=== PATIENT | female | born 1990 | race Caucasian/White ===

== ENCOUNTER → 2024-02-26 09:59 | Outpatient (BNVA) | payer SELFPAY | DX: R76.11 Nonspecific reaction to tuberculin skin test without active tuberculosis (principal) ==

== ENCOUNTER 2024-08-07 11:54 | Outpatient (REF) | payer BC, SELFPAY ==
--- NOTE | ~2024-08-07 | XR_ITS ---
EXAMINATION: XR CHEST CLINICAL INFORMATION: Rule out pneumonia COMPARISON: None available. TECHNIQUE: 2 views of the chest were obtained. FINDINGS: The cardiac silhouette is normal. There is mild diffuse bronchial wall thickening. Right perihilar opacity.. There are no pleural effusions or pneumothoraces. The bones and soft tissues are unremarkable for the patient's age. XR/XR chest 2V IMPRESSION: Right perihilar opacity suspicious for pneumonia. Electronically signed by: Makayla Kinney MD 08/07/2024 06:13 PM [facility]
[2024-08-07 14:18] LABS: Influenza A PCR NEGATIVE (Negative); Influenza B PCR NEGATIVE (Negative); Resp Syncy Virus RNA Qual PCR NEGATIVE (Negative); SARS COV2 PCR INHOUSE NEGATIVE (Negative)
== END 2024-08-07 11:55 | disposition home or self-care (01) ==
LOC: HO.HMGCX 11:54
PROVIDERS: PCP Internal Medicine; Visit Provider Nurse Practitioner Family
DX: R09.89 Other specified symptoms and signs involving the circulatory and respiratory systems (principal); R05.9 Cough, unspecified; R50.9 Fever, unspecified; R68.89 Other general symptoms and signs; R06.2 Wheezing
CPT/HCPCS: 0241U; 71046

== ENCOUNTER 2024-08-07 11:54 | Outpatient (AMB) | payer BC, SELFPAY ==
--- NOTE | 2024-08-07 12:10 | AM.OFFWIN_ITS ---
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 She reports a temperature of 101 degrees, body aches, feeling tired, cough, runny nose with clear drainage. She has been taking Tylenol which does help to reduce the fever. She denies an asthma history. Denies sore throat, denies ear pain, ExaM Awake alert NAD, mildly ill-appearing Sclera and conjunctiva clear bilat Nares clear drainage, turbinates within normal limits, no sinus tenderness with palpation bilat TM intact mild congestion bilat MMM, pharynx WNL Tachycardic, regular rhythm LS coarse throughout, worse in the right mid/upper lobe, wheezing throughout, paroxysmal cough Plan Viral swab negative. Chest x-ray + for PNA, see results. Treat with Augmentin, Mucinex & Albuterol. Take as directed. Take w/ food to avoid GI upset. Edu on reasons to seek add'l care and f/u Out of work will need repeat CXR in 1 month for resolution along w/ recheck I have placed this order. My office will reach out to schedule her an office visit in 1 months. This note is constructed using voice recognition software. While every effort has been made to ensure accuracy in continuous mining machine lode miner, still errors may have been included Sometimes, these errors may affect the content or meaning of the given sentence . Total time spent caring for the patient today was 30 minutes. This includes time spent before the visit reviewing the chart, time spent during the visit, and time spent after the visit on documentation Physical Exam Vital Signs: Last Vital Signs Temp 99.9 F 08/07/24 12:11 Pulse 108 H 08/07/24 12:11 BP 112/70 08/07/24 12:11 Pulse Ox 98 08/07/24 12:11 Oxygen Delivery Method Room Air 08/07/24 12:11 BMI result Body Mass Index 29.9 Results Reviewed Results Reviewed: RUN: 08/07/24 3604 PAGE 1 [facility] [address] [place] [id number] Floor Helper: Jeremias Nunez M.D. Specimen Inquiry Name: Andreia Robb Age/Sex: 33/F : 1990 Unit#: [id number] Attend Dr: Shauna Manzano Re08/07/24 Status: REG REF [facility] Disch: SPEC : [id number] ALEJO: 08/07/24 STATUS: COMP REQ : [id number] RECD: 08/07/[address] [facility] DR: Shauna ManzanoPTammy COMP: 08/07/24 ENTERED: 08/07/24 [facility] DR: ORDERED: SARS/FLU/RSV Test Result Flag Reference Influenza A PCR NEGATIVE Negative Influenza B PCR NEGATIVE Negative RSV RNA QualPCR NEGATIVE Negative SARSCOV2 RT-PCR NEGATIVE Negative All test results must be correlated with clinical findings. Negative results do not preclude SARS-CoV2, influenza A virus, influenza B virus and/or RSV infection and should not be used as the sole basis for treatment or other patient management decisions. Negative results must be combined with clinical observations, patient history, and epidemiological information. This test has not been evaluated for monitoring treatment of infection. This test has been authorized by the FDA under an Emergency Use Authorization (EUA) for use by authorized laboratories. Testing performed on the [employer] GeneXpert utilizing real-time RT-PCR. All SARS CoV2 and positive influenza A/B results are reported to [facility]. END OF REPORT Assessment & Plan Assessment & Plan (1) Wheezing without diagnosis of asthma: Code(s): R06.2 - Wheezing Plan: . (2) Flu-like symptoms: Code(s): R68.89 - Other general symptoms and signs Plan: . (3) Fever: Comment: .. Code(s): R50.9 - Fever, unspecified Qualifiers: Encounter type: initial encounter (4) Cough: Code(s): R05.9 - Cough, unspecified Qualifiers: Cough type: acute Qualified Code(s): R05.1 - Acute cough Plan: . (5) Pneumonia: Code(s): J18.9 - Pneumonia, unspecified organism Qualifiers: Laterality: right Lung location: middle lobe of lung Pneumonia type: due to unspecified organism Qualified Code(s): J18.9 - Pneumonia, unspecified organism Plan: . Plan . Orders: Orders XR chest 2V Today R05.9 - Cough, unspecified, R06.2 - Wheezing, R09.89 - Other specified symptoms and signs involving the circulatory and respiratory systems, R50.9 - Fever, unspecified, R68.89 - Other general symptoms and signs SARS-CoV2/FLU/RSV Today R05.9 - Cough, unspecified, R06.2 - Wheezing, R09.89 - Other specified symptoms and signs involving the circulatory and respiratory systems, R50.9 - Fever, unspecified, R68.89 - Other general symptoms and signs XR chest 2V 1 Month J18.9 - Pneumonia, unspecified organism Medications: New albuterol sulfate 90 mcg/actuation 2 puffs inhalation Q4-6H 30 days PRN 8.5 grams 0RF shortness of breath or wheezing amoxicillin-pot clavulanate 875-125 mg 1 tab PO Q12H 10 days 20 tabs 0RF guaifenesin ER (Mucinex) 1,200 mg (2 x 600 mg) PO Q12H 10 days PRN 40 tabs 0RF congestion Coding Level of Care Code Est Pt Level 4 (07432) Diagnoses Wheezing without diagnosis of asthma R06.2 Flu-like symptoms R68.89 Fever R50.9 Encounter type: initial encounter Acute cough R05.1 Cough type: acute Pneumonia of right middle lobe due to infectious organism J18.9 Laterality: right Lung location: middle lobe of lung Pneumonia type: due to unspecified organism
[2024-08-07 12:11] VITALS: BP 112/70; PULSE 108; TEMP 37.7; O2SAT 98; BMI 29.9
== END 2024-08-07 12:49 | disposition home or self-care (01) ==
PROVIDERS: PCP Internal Medicine; Visit Provider Nurse Practitioner Family
DX: R06.2 Wheezing (principal); R68.89 Other general symptoms and signs; R50.9 Fever, unspecified; R05.1 Acute cough; J18.9 Pneumonia, unspecified organism

== ENCOUNTER 2024-09-06 13:14 | Outpatient (REF) | payer OTHER, SELFPAY ==
--- NOTE | ~2024-09-06 | XR_ITS ---
EXAMINATION: XR CHEST CLINICAL INFORMATION: J18.9 - Pneumonia, unspecified organism COMPARISON: None available. TECHNIQUE: 2 views of the chest were obtained. FINDINGS: The cardiac, hilar, and mediastinal contours are normal. There has been near complete clearing of pneumonia in the superior segment right lower lobe. Minimal groundglass opacity remains. No new abnormal opacities. No effusions. No pneumothorax. There is no focal osseous or soft tissue abnormality. XR/XR chest 2V IMPRESSION: 1. Significantly improved pneumonia in the superior segment right lower lobe. No new findings. Electronically signed by: Scott Jameson MD 09/08/2024 09:22 AM [facility]
== END 2024-09-06 13:15 | disposition home or self-care (01) ==
LOC: HO.HMGCX 13:14
PROVIDERS: PCP Internal Medicine; Visit Provider Nurse Practitioner Family
DX: J18.9 Pneumonia, unspecified organism (principal)
CPT/HCPCS: 71046

== ENCOUNTER → 2024-09-06 13:18 | Outpatient (BNV) | payer OTHER, SELFPAY | PROVIDERS: PCP Internal Medicine; Visit Provider Radiology Diagnostic Radiology | DX: J18.9 Pneumonia, unspecified organism (principal) | CPT/HCPCS: 71046 ==

== ENCOUNTER 2024-09-08 10:09 | Outpatient (AMB) | payer OTHER, SELFPAY ==
--- NOTE | 2024-09-08 10:17 | A.OFFPC_ITS ---
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 Required: No Allergies No Known Allergies Allergy (Verified 09/08/24 10:31) Medication List - Last Reconciled 09/08/24 by [facility]IND[facility]LOC[facility] albuterol sulfate 90 mcg/actuation 2 puffs inhalation Q4-6H PRN 30 days amoxicillin-pot clavulanate 875-125 mg 1 tab PO Q12H 10 days guaifenesin ER (Mucinex) 1,200 mg (2 x 600 mg) PO Q12H PRN 10 days HPI HPI Comments History of Present Illness Details History of Present Illness The patient is a 33-year-old female presenting with a follow-up for pneumonia; initially treated with Augmentin, and the patient completed the course of antibiotics. Her symptoms included fever and productive cough, which have resolved, but she still experiences postnasal mucus. The patient reports decreased physical activity tolerance. A repeat chest x-ray showed significant improvement but indicated near-complete clearing of the pneumonia, necessitating further monitoring. The patient has a history of recurrent episodes of pneumonia since high school, occurring every one to two years, often accompanied by high fevers and tachycardia. Additionally, the patient experiences chronic constipation with bloating and abdominal discomfort, which she intends to discuss with gastroenterology. She has a family history of colon polyps, raising concerns for potential gastrointestinal disorders. Physical Exam General: Awake, alert. No apparent distress Eyes: Sclera and conjunctiva clear bilaterally Cardiovascular: Regular rate and rhythm Respiratory: Clear to auscultation bilaterally, no wheezing or crackling noted Results - Imaging: Recent chest x-ray indicates significant improvement in the right lower lobe pneumonia with near-complete clearing. Plan - Bacterial Pneumonia: Initiate a five-d ay course of doxycycline to ensure complete resolution. Maintain the use of an albuterol inhaler for the next 10-14 days to promote lung expansion. - Recurrent Pulmonary Infections: Referr al to Dr. Germain, a medical insurance coder with expertise in immunology, for a comprehensive evaluation and immunology workup. - Chronic Constipation: Referral to [facility] for assessment and management, given the persistent symptoms and family history. Consideration for a colonoscopy due to family history and symptoms. Patient was informed and verbally consented to the use of an ambient scribe for clinic note documentation during this visit. Discussion Notes During this visit, I discussed with the patient the improvement in her pneumonia based on the latest chest x-ray. I emphasized the importance of completing another course of doxycycline and using the inhaler to assist in lung recovery. We reviewed her recurrent pulmonary infections, and I recommended a referral to Dr. Germain for an immunology workup. I discussed her chronic constipation and arranged for a gastroenterology referral, highlighting the possibility of needing a colonoscopy due to her family history and current symptoms. We addressed the timeline for these follow-ups and the current scheduling delays in the gastroenterology department. Patient Instructions - Complete the prescribed doxycycline co urse for five days. - Use the albuterol inhaler for 10-14 da ys as directed. - Follow up with Dr. Germain for a pul monary and immunology evaluation as arranged. - Attend the gastroenterology appointmen t when scheduled and mention any need for a colonoscopy based on family history. - Contact the office if there is any wor sening of respiratory symptoms or other health concerns. RTO IN A FEW MONTHS TO EST CARE W/ ME, SOONER PRN Total time spent caring for the patient today was 30 minutes. This includes time spent before the visit reviewing the chart, time spent during the visit, and time spent after the visit on documentation Questionnaire PHQ-9 Over the last 2 weeks, how often have you been bothered by any of the following problems? 1. Little interest or pleasure in doing things: several days 2. Feeling down, depressed, or hopeless: several days 3. Trouble falling or staying asleep, or sleeping too much: several days 4. Feeling tired or having little energy: several days 5. Poor appetite or overeating: several days 6. Feeling bad about yourself - or that you are a failure or have let yourself or your family down: not at all 7. Trouble concentrating on things, such as reading the newspaper or watching television: not at all 8. Moving or speaking so slowly that other people could have noticed. Or the opposite - being so fidgety or restless that you have been moving around a lot more than usual: not at all 9. Thoughts that you would be better off or of hurting yourself in some way: not at all Total score: 5 41007 - PHQ-9 Billing: Yes Source: Developed by Drs. Vinh Painter, Erin Scanlon, Ty Rosenthal and colleagues, with an educational sofya from [employer]. Thrive Questionnaire Date Thrive assessed: 09/08/24 I am a: Patient What is your living situation today?: I have a steady place to live Within the past 12 months, did the food you bought not last and you didn't have the money to get more?: Never true Within the past 12 months, did you worry whether your food would run out before you got money to buy more?: Never true Do you have trouble paying for medicines?: No Do you have trouble getting transportation to medical appointments?: No Do you have trouble paying your heating and electricity bill?: No Do you have trouble taking care of your child, family member or friend?: No Do you have trouble with day-to-day activities such as bathing, preparing meals, shopping, managing finances, etc.?: No Are you currently unemployed and looking for a job?: No Are you interested in more education?: No Please select the resources that you would like help with: None Currently or been in a relationship where the following occur: No concerns reported THRIVE Score: 0 AUDIT C Alcohol Use Questionnaire (AUDIT-C) 1. How often do you have a drink containing alcohol?: 2-4 times a month 2. How many drinks containing alcohol do you have on a typical day when you are drinking?: 1 or 2 3. How often do you have six or more drinks on one occasion?: Never Total Score: 2 KIMBERLY-7 AMB Questionnaire KIMBERLY-7 Date KIMBERLY - 7 assessed: 09/08/24 Feeling nervous, anxious, or on edge: 2 = More than half the days Not being able to stop or control worryin = Several days Worrying too much about different things: 0 = Not at all Trouble relaxin = Several days Being so restless that it is hard to sit still: 0 = Not at all Becoming easily annoyed or irritable: 2 = More than half the days Feeling afraid as if something awful might happen: 0 = Not at all Total KIMBERLY-7 score (0-4 normal; 5-9 mild; 10-14 moderate; 15-21 severe): 6 Source: Developed by Drs. Vinh Painter, Erin Scanlon, Ty Rosenthal and colleagues, with an educational sofya from [employer]. KIMBERLY-7 Assessment Billing KIMBERLY-7 Assessment Tool: KIMBERLY-7 Assessment 30244 Physical exam (Primary Care) Vital Signs: Last Vital Signs Pulse 69 09/08/24 10:20 Resp 12 09/08/24 10:20 BP 118/68 09/08/24 10:20 Pulse Ox 98 09/08/24 10:20 Oxygen Delivery Method Room Air 09/08/24 10:20 BMI result Body Mass Index 29.9 PHQ-9: PHQ-9 Score PHQ-9: Total score 5 09/08/24 10:35 Thrive Assessment: Date of Thrive Assessment Date Thrive assessed 09/08/24 09/08/24 10:18 Currently or been in a relationship where the following occur: No concerns reported Results Reviewed Results Reviewed: [facility] [place] [address] XRay Report Signed Patient: Andreia Robb MR#: [id number] : 1990 Acct:[id number] Age/Sex: 33 / F ADM Date: 09/06/24 Loc: .[facility] Attending Dr: Shauna DUARTE Ordering Physician: Shauna Manzano Date of Service: 09/06/24 Procedure(s): XR chest 2V Accession Number(s): [id number] cc: Shauna Manzano; Heide Aguiar MD~ EXAMINATION: XR CHEST CLINICAL INFORMATION: J18.9 - Pneumonia, unspecified organism COMPARISON: None available. TECHNIQUE: 2 views of the chest were obtained. FINDINGS: The cardiac, hilar, and mediastinal contours are normal. There has been near complete clearing of pneumonia in the superior segment right lower lobe. Minimal groundglass opacity remains. No new abnormal opacities. No effusions. No pneumothorax. There is no focal osseous or soft tissue abnormality. XR/XR chest 2V IMPRESSION: 1. Significantly improved pneumonia in the superior segment right lower lobe. No new findings. Electronically signed by: Scott Jameson MD 09/08/2024 09:22 AM EST Dictated By: Scott Jameson MD Signed By: <Electronically signed by Scott Jameson MD in OV> 09/08/24 0922 DD/ 1318 TD/TT: 09/06/24 1321 Die Operator: Coding Level of Care Code Est Pt Level 4 (48720) Complex EM visit Add On G2211 Diagnoses Pneumonia of right middle lobe due to infectious organism J18.9 Laterality: right Lung location: middle lobe of lung Pneumonia type: due to unspecified organism Chronic diarrhea K52.9 Additional Codes KIMBERLY-7 Assessment Billing - KIMBERLY-7 Assessment Tool: KIMBERLY-7 Assessment 50280 ([id number]) PHQ-9 - 03758 - PHQ-9 Billing: Yes ([id number]) Assessment & Plan Assessment & Plan (1) Pneumonia: Code(s): J18.9 - Pneumonia, unspecified organism Category: Medical Qualifiers: Laterality: right Lung location: middle lobe of lung Pneumonia type: due to unspecified organism Qualified Code(s): J18.9 - Pneumonia, unspecified organism (2) Chronic diarrhea: Code(s): K52.9 - Noninfective gastroenteritis and colitis, unspecified Category: Medical Plan . Orders: Referrals Gastroenterology Referral K52.9 - Noninfective gastroenteritis and colitis, unspecified Pulmonology Referral J18.9 - Pneumonia, unspecified organism Medications: New doxycycline hyclate 100 mg PO BID 10 caps 0RF 5 days
[2024-09-08 10:20] VITALS: BP 118/68; PULSE 69; RESP 12; O2SAT 98; BMI 29.9
== END 2024-09-08 10:44 | disposition home or self-care (01) ==
PROVIDERS: PCP Internal Medicine; Visit Provider Nurse Practitioner Family
DX: J18.9 Pneumonia, unspecified organism (principal); K52.9 Noninfective gastroenteritis and colitis, unspecified

== ENCOUNTER → 2024-09-08 10:09 | Outpatient (BNVA) | payer OTHER, SELFPAY | PROVIDERS: PCP Internal Medicine; Visit Provider Nurse Practitioner Family | DX: J18.9 Pneumonia, unspecified organism (principal); K52.9 Noninfective gastroenteritis and colitis, unspecified | CPT/HCPCS: 96127 ==

== ENCOUNTER 2024-10-19 13:29 | Outpatient (REF) | payer OTHER, SELFPAY ==
[2024-10-19 16:16] LABS: Erythrocyte Sedimentation Rate 11 MM/HR (0-20)
[2024-10-20 11:43] LABS: IgA 366 mg/dL (47-310); IgG 1540 mg/dL (600-1640); IgM 81 mg/dL (50-300)
[2024-10-20 14:17] LABS: Immunoglobulin E 25 kU/L (<OR=114)
[2024-10-21 14:08] LABS: Anti Nuclear Antibody Screen NEGATIVE (NEGATIVE)
[2024-10-22 18:28] LABS: VITAMIN D (1,25 OH) D3 48 pg/mL; Vit D (1,25-Dihydroxy) Total 48 pg/mL (18-72); Vitamin D (1,25 OH) D2 <8 pg/mL
[2024-10-23 16:14] LABS: Vitamin D 25-OH, D2 <4 ng/mL; Vitamin D 25-OH, D3 26 ng/mL; Vitamin D 25-OH, Total 26 ng/mL (30-100)
== END 2024-10-19 13:30 | disposition home or self-care (01) ==
LOC: HO.LAB 13:29
PROVIDERS: PCP Internal Medicine; Visit Provider Hospitalist
DX: J18.9 Pneumonia, unspecified organism (principal); R91.8 Other nonspecific abnormal finding of lung field
CPT/HCPCS: 36415; 82306; 82652; 82784; 82785; 85652; 86038

== ENCOUNTER 2024-10-19 13:29 | Outpatient (AMB) | payer OTHER, SELFPAY ==
--- NOTE | 2024-10-19 13:31 | A.OFFVIS_ITS ---
Vital Signs 10/19/24 13:32 Height 5 ft Weight 152 lb 1.903 oz BMI 29.7 BP 118/76 Blood Pressure Location Rt brachial Position Sitting Pulse 71 Pulse Source Pulse Oximeter Pulse Oximetry (%) 100 Oxygen Delivery Method Room Air Intake Visit Reasons: Recurrent Pneumonia Allergies No Known Allergies Allergy (Verified 10/19/24 13:34) HPI Comments Details: The patient is here for pulmonary evaluation. The patient is a 33 year woman with a known history of pneumonia. Apparently she was in usual state health until when she was not back in 2019 approximately where she developed only. She was treated in subsequently after that she has had several more episodes. She was followed at [facility] and she did have a CT scan of the chest back in 2020. He reports demonstrating multiple pulmonary nodules. No evidence of any parenchymal disease or airspace disease. She ended up having a repeat CT scan 2 years later demonstrating no evidence of any worsening of the nodules. Therefore no additional follow-up with warranted. More recently 08/18/2024 she started developing fevers and malaise. She developed a cough. Ultimately had an x-ray demonstrating right-sided hilar airspace disease suggestive of pneumonia. The patient was treated with antibiotics. And after a week she felt better. She had a repeat x-ray sometime in August demonstrating interval resolution of the airspace disease. Right now well. She is back to her baseline. 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 She denies any joint pains or rashes. At this point will go ahead and request blood work to assess her immune system in view of her frequent pneumonias. She is going to follow up in 6 months. She develops any worsening symptoms prior to that she will call for an earlier assessment. COUNT INCLUDES THE [facility] Medical History (Updated 10/19/24 @ 19:36 by Polo Germain MD) Pulmonary nodules Social History (Updated 10/19/24 @ 13:34 by Michelle Orr CMA) Patient Tobacco Use Status: Never used Tobacco Review of Systems Const Denies fever(s) and Denies malaise Eyes Reports no additional complaints ENT Reports no additional complaints Card Denies chest pain Resp Reports no additional complaints and Denies wheezing GI Reports no additional complaints Musc Reports no additional complaints Skin/Breast Denies rash Endo Reports no additional complaints Kevin/Lymph Denies easy bleeding and Denies lymphadenopathy Aller/Immun Denies wheezing Physical Exam Vital Signs: Last Vital Signs Pulse 71 10/19/24 13:32 BP 118/76 10/19/24 13:32 Pulse Ox 100 10/19/24 13:32 Oxygen Delivery Method Room Air 10/19/24 13:32 BMI result Body Mass Index 29.7 Const General: comfortable HEENT Head: Yes normocephalic Neck Neck: Yes supple Chest Chest palpation & inspection: normal inspection of the chest Resp Effort & Inspection: normal respiratory effort Auscultation: clear to auscultation bilaterally Cardio Heart sounds: S1 normal heart sound present and S2 normal heart sound present GI Palpation (GI): Soft to palpation Skin General skin exam: no rashes or lesions noted Extrem General: Yes no clubbing, cyanosis or edema Assessment & Plan Assessment & Plan (1) Pneumonia: Code(s): J18.9 - Pneumonia, unspecified organism Category: Medical Qualifiers: Laterality: right Lung location: middle lobe of lung Pneumonia type: due to unspecified organism Qualified Code(s): J18.9 - Pneumonia, unspecified organism (2) Pulmonary nodules: Comment: stable nodules based on CT chest 2020 and 2022 Code(s): R91.8 - Other nonspecific abnormal finding of lung field Category: Medical Plan Bloodwork DILLAN as needed Will call if any respiratory complaints F/U 6 months Orders: Orders Immunoglobulin E Today J18.9 - Pneumonia, unspecified organism GUILLERMINA Reflex Titer and Pattern Today J18.9 - Pneumonia, unspecified organism Erythrocyte Sedimentation Rate Today J18.9 - Pneumonia, unspecified organism Vitamin D 25-OH (D2 and D3) Today J18.9 - Pneumonia, unspecified organism Cell Count w Diff Pleural Fld Today J18.9 - Pneumonia, unspecified organism Immunoglobulins,IgG IgA IgM Today J18.9 - Pneumonia, unspecified organism Vitamin D 1,25 dihydroxy Today J18.9 - Pneumonia, unspecified organism Coding Level of Care Code New Pt Level 4 (49392) Diagnoses Pneumonia of right middle lobe due to infectious organism J18.9 Laterality: right Lung location: middle lobe of lung Pneumonia type: due to unspecified organism Pulmonary nodules R91.8 Time Spent (min) 35
[2024-10-19 13:32] VITALS: BP 118/76; PULSE 71; O2SAT 100; BMI 29.7
== END 2024-10-19 13:57 | disposition home or self-care (01) ==
PROVIDERS: PCP Internal Medicine; Visit Provider Hospitalist
DX: J18.9 Pneumonia, unspecified organism (principal); R91.8 Other nonspecific abnormal finding of lung field
CPT/HCPCS: 99204

== ENCOUNTER 2024-10-20 10:37 | Outpatient (AMB) | payer OTHER, SELFPAY ==
--- NOTE | 2024-10-20 10:39 | A.OFFPC_ITS ---
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: No Allergies No Known Allergies Allergy (Verified 10/20/24 10:53) Medication List - Last Reconciled 10/20/24 by DONNA Hanley No Known Home Meds Tobacco use date assessed: 10/20/24 Dental Screening Dental Screen Date: 10/20/24 Did you have a dental visit in the last 12 months?: Yes Did you have a dental problem in the last 6 months where you did not have access to dental care?: No Was dental information given to patient?: Patient has dentist HPI HPI Comments History of Present Illness Details 33 y/o F with hx of PNA, family hx of co sole polyps (Dad), chronic constipation, multiple pulmonary nodules, HPV + Surgery: None 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 Optho - no changes, no glasses, has never had eye exam Skin - new lesion r chest in the last year; no family hx of skin cancerl rash L shoulder both occurred after sunburn last summer History of Present Illness The patient is a 33-year-old female presenting to [facility] and for a wellness examination. 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 Her family history includes colon polyps on her father?s side. She reports chronic constipation and has been referred to gastroenterology, though she has not yet received an appointment call. The patient recently experienced the of her sister, which she identifies as a trigger for situational anxiety and depression; her mental health screening showed a positive score for both conditions. She reports no current medications, known allergies, or significant additional family medical history aside from those mentioned. The patient had a Pap smear in early September, which was positive for HPV, but she reports no complications from the diagnosis. Health Maintenance - Vaccination: Tdap vaccine received on October 17, 2019. - Opt-out of the flu vaccine this year d ue to frequent illnesses. - Eye examination referred to [facility]. - Skin evaluation referral placed to [facility] for a newly noted skin lesion. Review of Systems - Constitutional: Denies recent weight c hanges or unexplained fatigue. - Dermatologic: Reports a new skin lesio n on the chest. - Respiratory: Reports no smoking habits . - Gastrointestinal: Reports chronic cons tipation. - Psychiatric: Reports situational anxie ty and depression due to bereavement. Exam: General: Well developed, well nourished, in no acute distress. Appears stated age. Head: Normocephalic, atraumatic. Eyes: Pupils are equal, round and reactive to light and accommodation. Conjunctivae are clear. Vision grossly normal. Ears: TMs clear AU, EACS WNL Nose: Patent, without discharge. Mouth: There are no ulcers or lesions noted. No inflammation, no post nasal drip, no plaques nor exudates. Tonsillar hypertrophy bilat (baseline) Neck: Supple, no adenopathy or thyromegaly. Lungs: Clear to auscultation bilaterally. No rales, rhonchi or wheeze noted. Good air flow in all [place]. Heart: Regular rate and rhythm. No murmurs, click, rubs or gallops are noted. Abdomen: Bowel sounds present in all quadrants. The abdomen is soft, nontender, with no masses or organomegaly noted. No hernias are noted. Musculoskeletal: Joints are nontender, without swelling, redness, or effusions. Range of motion is observed to be normal. Pulses: Peripheral pulses are equal and palpable bilaterally. Extremities: No clubbing, cyanosis nor edema is noted. Neurologic: Gait and station normal. Cranial Nerves 2-12 intact. Motor strength grossly symmetrical and intact. No sensory loss. Balance normal. Skin: R anterior chest is a faint pink plaque, flat; L shoulder scattered flat hypopigmented areas. Turgor is good. Skin color is good. Hair and nails are without abnormalities. Psych: Normal eye contact, affect and mood appropriate, and normal interactions. Patient is alert and appropriate to context. Plan - Baseline lab screening for lipid profi le due to known history of elevated triglycerides and possible dyslipidemia. - Gastroenterology follow-up to address chronic constipation issues; the referral was confirmed still pending. - Mental health support offered due to s ituational anxiety and depression after the sister's passing. - Dermatology referral for skin assessme nt of suspected minor skin lesion on the chest and shoulder. - Encourage the continuation of routine health maintenance and updates on immunization records. Patient was informed and verbally consented to the use of an ambient scribe for clinic note documentation during this visit. Discussion Notes During the visit, I discussed the significance of maintaining regular health screenings, especially given the family history of colon polyps and the past occurrence of pulmonary nodules. I emphasized the importance of getting an eye exam and managing chronic health issues such as constipation. I provided reassurance regarding the situational nature of her anxiety following her s ister's and encouraged her to reach out if her symptoms persist. I outlined the plan to monitor her skin lesion through dermatological evaluation and recommended routine preventative care. Patient Instructions - Schedule and complete baseline laborat ory tests for a cholesterol profile. - Follow up with gastroenterology; notif y the clinic if no appointment is forthcoming. - Monitor skin changes and attend the re ferred dermatology appointment. - Consider routine skin and eye healthca re visits. - Perform self-breast exams regularly, e specially after menses. - Stay proactive with mental health, and contact me if anxiety or depression symptoms worsen. - Maintain good health practices such as varied nutrition and regular physical activity. RTO 1 YEAR CPE, SOONER PRN PFSH Medical History (Updated 10/20/24 @ 11:[address] [facility]) Shingles Pneumonia Pulmonary nodules Surgical History (Updated 10/20/24 @ 10:48 by Juan Beth MA) No pertinent past surgical history Family History (Updated 10/20/24 @ 10:48 by Juan Beth MA) Mother Mental health disorder Sister Mental health disorder Thyroid disorder Paternal Aunt No problems noted. Paternal Grandmother Hypertension Cardiovascular disease Brother Asthma Father Cardiovascular disease Paternal Grandfather Cardiovascular disease Social History (Updated 10/20/24 @ 10:45 by Juan Beth MA) Household Members: None Both parents involved: No Caregiver staying overnight: No Housing: House Are you a primary healthcare management consultant to a significant other at home: No Do you presently have visiting nurse or other home services: No 75 years or older and lives alone: No Alcohol intake: current Alcohol intake frequency: a few times a month Patient Tobacco Use Status: Never used Tobacco e-Cigarette/Vaping Use: Never Used Second Hand Smoke Exposure: No Current occupational status: employed 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 1. Little interest or pleasure in doing things: more than half the days 2. Feeling down, depressed, or hopeless: more than half the days 3. Trouble falling or staying asleep, or sleeping too much: several days 4. Feeling tired or having little energy: more than half the days 5. Poor appetite or overeating: several days 6. Feeling bad about yourself - or that you are a failure or have let yourself or your family down: not at all 7. Trouble concentrating on things, such as reading the newspaper or watching television: not at all 8. Moving or speaking so slowly that other people could have noticed. Or the opposite - being so fidgety or restless that you have been moving around a lot more than usual: not at all 9. Thoughts that you would be better off or of hurting yourself in some way: not at all Total score: 8 Depression Screening Interpretation: Positive (RELATED TO SISTER SUICIDE ) Depression Screening Follow-up: Declines treatment Depression Screening Done: Yes 36323 - PHQ-9 Billing: Yes Source: Developed by Drs. Vinh Painter, Erin Scanlon, Ty Rosenthal and colleagues, with an educational sofya from [employer]. Thrive Questionnaire Date Thrive assessed: 10/20/24 I am a: Patient What is your living situation today?: I have a steady place to live Within the past 12 months, did the food you bought not last and you didn't have the money to get more?: Never true Within the past 12 months, did you worry whether your food would run out before you got money to buy more?: Never true Do you have trouble paying for medicines?: No Do you have trouble getting transportation to medical appointments?: No Do you have trouble paying your heating and electricity bill?: No Do you have trouble taking care of your child, family member or friend?: No Do you have trouble with day-to-day activities such as bathing, preparing meals, shopping, managing finances, etc.?: No Are you currently unemployed and looking for a job?: No Are you interested in more education?: No Please select the resources that you would like help with: None Currently or been in a relationship where the following occur: No concerns reported THRIVE Score: 0 AUDIT C Alcohol Use Questionnaire (AUDIT-C) 1. How often do you have a drink containing alcohol?: 2-4 times a month 2. How many drinks containing alcohol do you have on a typical day when you are drinking?: 1 or 2 3. How often do you have six or more drinks on one occasion?: Never Total Score: 2 Score Reviewed/Action Taken: Yes KIMBERLY-7 AMB Questionnaire KIMBERLY-7 Date KIMBERLY - 7 assessed: 10/20/24 Feeling nervous, anxious, or on edge: 2 = More than half the days Not being able to stop or control worryin = More than half the days Worrying too much about different things: 2 = More than half the days Trouble relaxin = More than half the days Being so restless that it is hard to sit still: 0 = Not at all Becoming easily annoyed or irritable: 3 = Nearly every day Feeling afraid as if something awful might happen: 0 = Not at all Total KIMBERLY-7 score (0-4 normal; 5-9 mild; 10-14 moderate; 15-21 severe): 11 Source: Developed by Drs. Vinh Painter, Erin Scanlon, Ty Rosenthal and colleagues, with an educational sofya from [employer]. KIMBERLY-7 Assessment Billing KIMBERLY-7 Assessment Tool: KIMBERLY-7 Assessment 96996 Physical exam (Primary Care) Vital Signs: Last Vital Signs Temp 97.7 F 10/20/24 10:48 Pulse 65 10/20/24 10:48 Resp 12 10/20/24 10:48 BP 117/70 10/20/24 10:48 Pulse Ox 99 10/20/24 10:48 Oxygen Delivery Method Room Air 10/20/24 10:48 BMI result Body Mass Index 29.8 Tobacco/Smoking Status: Tobacco use Status Tobacco use date assessed 10/20/24 10/20/24 10:51 Patient Tobacco Use Status Never used Tobacco 10/20/24 10:45 e-Cigarette/Vaping Use Never Used 10/20/24 10:51 PHQ-9: PHQ-9 Score PHQ-9: Total score 8 10/20/24 10:40 Depression Screening Interpretation: Positive (RELATED TO SISTER SUICIDE ) Depression Screening Follow-up: Declines treatment Thrive Assessment: Date of Thrive Assessment Date Thrive assessed 10/20/24 10/20/24 10:40 Currently or been in a relationship where the following occur: No concerns reported Coding Level of Care Code Est Pt Prev Care 18-39y(01490) Diagnoses Encounter for general adult medical examination without abnormal findings Z00.00 Family history of colonic polyps Z83.719 Grieving F43.21 Laboratory exam ordered as part of routine general medical examination Z00.00 Blurred vision, bilateral H53.8 Skin rash R21 Skin lesion L98.9 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 Family history of suicide Z81.8 Additional Codes KIMBERLY-7 Assessment Billing - KIMBERLY-7 Assessment Tool: KIMBERLY-7 Assessment 41388 ([id number]) PHQ-9 - 30437 - PHQ-9 Billing: Yes ([id number]) Assessment & Plan Assessment & Plan (1) Encounter for general adult medical examination without abnormal findings: Code(s): Z00.00 - Encounter for general adult medical examination without abnormal findings (2) Family history of colonic polyps: Code(s): Z83.719 - Family history of colon polyps, unspecified Category: Medical (3) Grieving: Code(s): F43.21 - Adjustment disorder with depressed mood Category: Medical (4) Laboratory exam ordered as part of routine general medical examination: Code(s): Z00.00 - Encounter for general adult medical examination without abnormal findings Category: Medical (5) Blurred vision, bilateral: Code(s): H53.8 - Other visual disturbances Category: Medical (6) Skin rash: Comment: L shoulder Code(s): R21 - Rash and other nonspecific skin eruption Category: Medical (7) Skin lesion: Comment: R anterior chest Code(s): L98.9 - Disorder of the skin and subcutaneous tissue, unspecified Category: Medical (8) HPV in female: Code(s): B97.7 - Papillomavirus as the cause of diseases classified elsewhere Category: Medical (9) Family history of suicide: Comment: sister Code(s): Z81.8 - Family history of other mental and behavioral disorders Category: Medical Plan . Orders: Orders Lipid Panel Today Z00.00 - Encounter for general adult medical examination without abnormal findings Comprehensive Met. Panel Today Z. - Encounter for general adult medical examination without abnormal findings Hemoglobin A1c Today Z00. - Encounter for general adult medical examination without abnormal findings Microalbumin, Random (w Creat) Today Z. - Encounter for general adult medical examination without abnormal findings TSH reflex Free T4 Today Z. - Encounter for general adult medical examination without abnormal findings Vitamin B12 and Folate Today Z.00 - Encounter for general adult medical examination without abnormal findings Referrals Dermatology Referral L98.9 - Disorder of the skin and subcutaneous tissue, unspecified, R21 - Rash and other nonspecific skin eruption Ophthalmology Referral H53.8 - Other visual disturbances Patient Instructions: Health screenings for women You should visit your health care provider from time to time, even if you are he althy. The purpose of these visits is to: Screen for medical issues Assess your risk for future medical problems Encourage a healthy lifestyle Update vaccinations and other preventive care services Help you get to know your provider in case of an illness Information Even if you feel fine, you should still see your provider for regular checkups. These visits can help you avoid problems in the future. For example, the only way to find out if you have high blood pressure is to have it checked regularly. High blood sugar and high cholesterol levels also may not have any symptoms in the early stages. A simple blood test can check for these conditions. There are specific times when you should see your provider or receive specific health screenings. The [place] Preventive Services Task Force publishes a list of recommended screenings. Below are screening guidelines for women ages 18 to 39. BLOOD PRESSURE SCREENING Your blood pressure should be checked at least once every 3 to 5 years if: Your blood pressure is in the normal range (top number less than 120 mm Hg and bottom number less than 80 mm Hg) You don't have risk factors for high blood pressure Ask your provider if you need your blood pressure checked more often if: The top number is 120 to 129 mm Hg or the bottom number is 70 to 79 mm Hg You have diabetes, heart disease, kidney problems, are overweight, or have certain other health conditions You have a first-degree relative with high blood pressure You are Black You had high blood pressure during a If the top number is 130 mm Hg or greater or the bottom number is 80 mm Hg or greater, this is considered stage 1 hypertension. Schedule an appointment with your provider to learn how you can reduce your blood pressure. Watch for blood pressure screenings in your area. Ask your provider if you can stop in to have your blood pressure checked. BREAST CANCER SCREENING Experts do not agree about the benefits of breast self-exams in finding breast cancer or saving lives. Talk to your provider about what is best for you. A screening mammogram is not recommended for most women under age 40. Your provider may discuss and recommend mammograms, MRI scans, or ultrasounds if you have an increased risk for breast cancer, such as: A mother or sister who had breast cancer at a young age (most often starting screening earlier than the age the close relative was diagnosed) You carry a high-risk genetic marker CERVICAL CANCER SCREENING Cervical cancer screening should start at age 21 years unless your provider advises otherwise. After the first test: Women ages 21 through 29 should have a Pap test every 3 years. Exoprts do not agree on whether HPV testing is recommended for this age group. Women ages 30 through 65 should be screened with either a Pap test every 3 years or the HPV test every 5 years or both tests every 5 years (called cotesting ). Women who have been treated for precancer (cervical dysplasia) should continue to have Pap tests for 20 years after treatment or until age 65, whichever is longer. If you have had your uterus and cervix removed (total hysterectomy), and you have not been diagnosed with cervical cancer or precancer (high grade cervical neoplasia), you do not need cervical cancer screening. CHOLESTEROL SCREENING Cholesterol screening should begin at: Age 45 for women with no known risk factors for coronary heart disease Age 20 for women with known risk factors for coronary heart disease Repeat cholesterol screening should take place: Every 5 years for women with normal cholesterol levels More often if changes occur in lifestyle (including weight gain and diet) More often if you have diabetes, heart disease, kidney problems, or certain other conditions DIABETES SCREENING You should be screened for diabetes starting at age 35 and then repeated every 3 years if you have no risk factors for diabetes. Screening may need to start earlier and be repeated more often if you have other risk factors for diabetes, such as: You have a first degree relative with diabetes. You are overweight or have obesity. You have high blood pressure, prediabetes, or a history of heart disease. Screening for diabetes should be done if you are planning to become and you are overweight and have other risk factors such as high blood pressure. DENTAL EXAM Go to the dentist once or twice every year for an exam and cleaning. Your dentist will evaluate if you need more frequent visits. EYE EXAM Have an eye exam every 5 to 10 years before age 40. If you have vision problems, have an eye exam every 2 years or more often if recommended by your provider. You should have an eye exam that includes an examination of your retina (back of your eye) at least every year if you have diabetes. IMMUNIZATIONS Commonly needed vaccines include: Flu shot: get one every year. COVID-19 vaccine: ask your provider what is best for you. Tetanus-diphtheria and acellular pertussis (Tdap) vaccine: have one at or after age 19 as one of your tetanus-diphtheria vaccines if you did not receive it as an adolescent. Tetanus-diphtheria: have a booster (or Tdap) every 10 years. Varicella vaccine: receive 2 doses if you never had chickenpox or the varicella vaccine. Hepatitis B vaccine: receive 2, 3, or 4 doses, depending on your exact circumstances. Measles, mumps, and rubella (MMR) vaccine: receive 1 to 2 doses if you are not already immune to MMR. Your provider can tell you if you are immune. Ask your provider about the human papillomavirus (HPV) vaccine if: You have not received the HPV vaccine in the past You have not completed the full vaccine series (you should catch up on this shot) Ask your provider if you should receive other immunizations if you have certain health problems that increase your risk for some diseases such as pneumonia. INFECTIOUS DISEASE SCREENING Women who are sexually active should be screened for chlamydia and gonorrhea up until age 25. Women 25 years and older should be screened for chlamydia and gonorrhea if at high risk. Screening for hepatitis C: All adults ages 18 to 79 should get a one-time test for hepatitis C. people should be screened at every . Screening for human immunodeficiency virus (HIV): All people ages 15 to 65 should get a one-time test for HIV. Depending on your lifestyle and medical history, you may also need to be screened for infections such as syphilis and HIV, as well as other infections. PHYSICAL EXAM All adults should visit their provider from time to time, even if they are healthy. The purpose of these visits is to: Screen for disease Assess your risk of future medical problems Encourage a healthy lifestyle Update your vaccinations and other preventive care services Maintain a relationship with a provider in case of an illness Your height, weight, and BMI should be checked at every exam. During your exam, your provider may ask you about: Depression and anxiety Diet and exercise Alcohol and tobacco use Safety issues, such as using seat belts, smoke detectors, and intimate partner violence Your medicines and risk for interactions SKIN SELF-EXAM Your provider may check your skin for signs of skin cancer, especially if you're at high risk, such as if you: Have had skin cancer before Have close relatives with skin cancer Have a weakened immune system OTHER SCREENING Talk with your provider about colon cancer screening if you have a strong family history of colon cancer or polyps, or if you have had inflammatory bowel disease or polyps yourself. Routine bone density screening of women under 40 is not recommended.
[2024-10-20 10:48] VITALS: BP 117/70; PULSE 65; RESP 12; TEMP 36.5; O2SAT 99; BMI 29.8
--- OUTSIDE RECORDS SUMMARY | 2024-10-20 11:49 | XMS_ITS | Clinical Summary ---
Author Organization [facility] Address [address] [place] [address] Care Team Providers Care Apprentice Painter Neckties Name Role Phone Unavailable Primary Care Provider Unavailabl e Surgical History Surgery Date Site/Laterality Comments OTHER SURGICAL HISTORY PROCEDURE: DENIES PREVIOUS SURGERY Medical History Medical History Date Comments Shortness of breath DX:Shortness of breath Tachycardia DX:Tachycardia Other chest pain DX:Other chest pain H. pylori infection DX:H. pylori infection Family History Medical History Relation Name Comments Hyperlipidemia Paternal Grandmother Hypertension Paternal Grandmother Relation Name Status Comments Brother Alive x3 half Father Alive Maternal Grandfather Alive Maternal Grandmother Alive Mother Alive Paternal Grandmother Alive Sister Alive x3 half Social History Tobacco Use Types Packs/Day Years Used Date Smoking Tobacco: Never Smokeless Tobacco: Never Alcohol Use Standard Drinks/Week Comments No 0 (1 standard drink = 0.6 oz pur e alcohol) Sex and Gender Information Value Date Recorded Sex Assigned at Not on file Gender Identity Not on file Sexual Orientation Not on file Obstetrics History Plan of Treatment Health Maintenance Due Date Last Done Comments Hepatitis B Vaccines (1 of 3 - 19+ 3-dose series) 2011 Cervical Cancer Screening: P ap Smear 2013 Cholesterol Screening (Lipid Panel) 10/27/2019 Depression Screening 10/27/2019 HIV Screening 10/27/2019 Hepatitis C Screening 10/27/2019 Social Influencers of Health Screening 10/27/2019 COVID-19 Vaccine (1 - 2023-2 5 season) 2024 Influenza Vaccine (#1) 2024 DTaP,Tdap,and Td Vaccines (2 - Td or Tdap) 10/07/2029 10/07/2019 HIB Vaccines Aged Out No longer eligi ble based on patient's age to complete this topic HPV Vaccines Aged Out No longer eligi ble based on patient's age to complete this topic Hepatitis A Vaccines Aged Out No long er eligible based on patient's age to complete this topic IPV Vaccines Aged Out No longer eligi ble based on patient's age to complete this topic MMR Vaccines Aged Out No longer eligi ble based on patient's age to complete this topic Meningococcal ACWY Vaccine Aged Out N o longer eligible based on patient's age to complete this topic Pneumococcal Vaccine: Pediat rics (0 to 5 Years) and At-Risk Patients (6 to 64 Years) Aged Out No longer eligi ble based on patient's age to complete this topic RSV Immunization Patients Un france 20 months Aged Out No longer eligible b ased on patient's age to complete this topic Varicella Vaccines Aged Out No longer eligible based on patient's age to complete this topic
== END 2024-10-20 11:18 | disposition home or self-care (01) ==
PROVIDERS: PCP Nurse Practitioner Family; Visit Provider Nurse Practitioner Family
DX: Z00.00 Encounter for general adult medical examination without abnormal findings (principal); Z83.719 Family history of colon polyps, unspecified; F43.21 Adjustment disorder with depressed mood; H53.8 Other visual disturbances; R21 Rash and other nonspecific skin eruption; L98.9 Disorder of the skin and subcutaneous tissue, unspecified; B97.7 Papillomavirus as the cause of diseases classified elsewhere; Z81.8 Family history of other mental and behavioral disorders

== ENCOUNTER → 2024-10-20 10:37 | Outpatient (BNVA) | payer OTHER, SELFPAY | PROVIDERS: PCP Nurse Practitioner Family; Visit Provider Nurse Practitioner Family | DX: Z00.00 Encounter for general adult medical examination without abnormal findings (principal); F43.21 Adjustment disorder with depressed mood; R21 Rash and other nonspecific skin eruption; H53.8 Other visual disturbances; L98.9 Disorder of the skin and subcutaneous tissue, unspecified; B97.7 Papillomavirus as the cause of diseases classified elsewhere; Z63.4 Disappearance and death of family member; Z81.8 Family history of other mental and behavioral disorders; Z83.719 Family history of colon polyps, unspecified | CPT/HCPCS: 96127 ==

== ENCOUNTER 2024-10-20 11:24 | Outpatient (REF) | payer OTHER, SELFPAY ==
--- OUTSIDE RECORDS SUMMARY | 2024-10-20 13:13 | XMS_ITS | Clinical Summary ---
Author Organization [facility] Address [address] [place] [address] Care Team Providers Care First Press Operator Name Role Phone Unavailable Primary Care Provider [...]
[2024-10-20 14:37] LABS: Estimated Average Glucose 94 mg/dL; Hemoglobin A1C 80.7255 umol/L; Hemoglobin A1c % 4.9 % (<6.0); Total Hemoglobin (HGBA1C) 2712.2325 umol/L
[2024-10-20 14:52] LABS: Creatinine Urine 295.37 mg/dL; Microalbum/Creatinine Ratio Ur 9.1 ug/mg cr (<30)
[2024-10-20 15:01] LABS: Alanine Aminotransferase 16 U/L (0-31); Albumin Level 4.2 g/dL (3.5-5.0); Alkaline Phosphatase 64 U/L (39-117); Anion Gap 7 (12-20); Aspartate Amino Transferase 25 U/L (5-31); Bilirubin Total 0.4 mg/dL (0.0-1.0); Blood Urea Nitrogen 12 mg/dL (9-16); Calcium 9.5 mg/dL (8.4-10.2); Carbon Dioxide 28 mmol/L (22-29); Chloride 108 mmol/L (96-108); Cholesterol 203 mg/dL (<200); Estimated Glomerular Filt Rate 58; Glucose Random 75 mg/dL (60-115); HDL Cholesterol 48 mg/dL (>40); LDL Cholesterol Calculated 137 mg/dL (<100); Potassium 3.9 mmol/L (3.3-5.1); Sodium 139 mmol/L (135-145); Total Protein 7.7 g/dL (6.5-8.0); Triglycerides 94 mg/dL (<150)
[2024-10-20 15:17] LABS: TSH reflex Free T4 1.46 uIU/mL (0.32-4.0)
[2024-10-20 15:27] LABS: Vitamin B12 582 pg/mL (200-900)
== END 2024-10-20 11:25 | disposition home or self-care (01) ==
LOC: HO.WFDLDS 11:24
PROVIDERS: Visit Provider Nurse Practitioner Family
DX: Z00.00 Encounter for general adult medical examination without abnormal findings (principal); Z13.1 Encounter for screening for diabetes mellitus; Z13.29 Encounter for screening for other suspected endocrine disorder; Z13.220 Encounter for screening for lipoid disorders
CPT/HCPCS: 36415; 80053; 80061; 82043; 82570; 82607; 82746; 83036; 84443

== ENCOUNTER 2024-11-24 16:10 | Outpatient (AMB) | payer OTHER, SELFPAY ==
--- NOTE | 2024-11-24 16:07 | A.OFFPC_ITS ---
Intake Visit Reasons: Depression Allergies No Known Allergies Allergy (Verified 10/20/24 10:53) Medication List - Last Reconciled 11/24/24 by GERALD Hanley escitalopram oxalate (Lexapro) 10 mg PO DAILY Tobacco use date assessed: 10/20/24 Dental Screening Dental Screen Date: 10/20/24 HPI HPI Comments History of Present Illness Details History of Present Illness - The patient is a 34-year-old female pr esenting with depressive symptoms s/p of sister by suicide. - Experiences difficulty with morning ro utines and days off, despite managing activities otherwise.. - Previous attempts at counseling were u nhelpful, with no prior medication intervention. - No harmful behavior towards herself an d currently no substance use or abuse. Physical Exam Limited physical exam was conducted Awake alert NAD Speaking in full sentences Engaging, appropriate Skin pink warm and dry Mood and affect appropriate Assessment and Plan 1. Major Depressive Disorder: The patien t is experiencing depressive symptoms characterized by difficulties in initiating daily routines and enjoyment of previously routine activities. After a discussion on the ineffectiveness of previous counseling alone, Lexapro is selected to manage these symptoms, with careful monitoring of side effects and therapeutic progress planned at six weeks. 2. Anxiety Disorder: Symptoms of anxiety intersect with the patient?s depressive presentation. Lexapro will serve as a treatment avenue, addressing both anxiety and depressive symptoms. Recommended exploration of supportive social media groups for additional emotional support without intensive personal engagement at this stage. Crisis info provided via the portal. Telehealth Attestation The visit was conducted via telehealth, and the documentation accurately reflects the interaction and information exchanged during the visit. The patient has been explained that this is an interactive (audio/video) telehealth encounter and what that consists of. The patient understands and wishes to proceed. SHARKMARX platform was used. Total time spent caring for the patient today was 21 minutes. This includes time spent before the visit reviewing the chart, time spent during the visit, and time spent after the visit on documentation, reviewing laboratory results, diagnostic imaging, medications, performing a medically necessary evaluation, counseling on diagnoses, care coordination, ordering appropriate tests, ordering appropriate medications, review of tests performed by other providers, reporting test results with the patient, communication with other healthcare providers. [facility] Medical History (Updated 10/20/24 @ 17:05 by GERALD Hanley) Pneumonia Pulmonary nodules Shingles Surgical History (Updated 10/20/24 @ 10:48 by Juan Beth MA) No pertinent past surgical history Family History (Updated 10/20/24 @ 10:48 by Juan Beth MA) Mother Mental health disorder Sister Mental health disorder Thyroid disorder Paternal Aunt No problems noted. Paternal Grandmother Hypertension Cardiovascular disease Brother Asthma Father Cardiovascular disease Paternal Grandfather Cardiovascular disease Social History (Updated 10/20/24 @ 10:45 by Juan Beth MA) Household Members: None Both parents involved: No Caregiver staying overnight: No Housing: House Are you a primary inspector health care facilities to a significant other at home: No Do you presently have visiting nurse or other home services: No 75 years or older and lives alone: No Alcohol intake: current Alcohol intake frequency: a few times a month Patient Tobacco Use Status: Never used Tobacco e-Cigarette/Vaping Use: Never Used Second Hand Smoke Exposure: No Current occupational status: employed 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 Vinh Painter, Erin Scanlon, Ty Rosenthal and colleagues, with an educational sofya from [employer]. Physical exam (Primary Care) Tobacco/Smoking Status: Tobacco use Status Tobacco use date assessed 10/20/24 10/20/24 10:51 Patient Tobacco Use Status Never used Tobacco 10/20/24 10:45 e-Cigarette/Vaping Use Never Used 10/20/24 10:51 Thrive Assessment: Date of Thrive Assessment Date Thrive assessed 10/20/24 10/20/24 10:40 Telehealth Telehealth Telehealth Platform: [facility] Location of provider rendering services: practice address Location of patient: address on file Patient Identification confirmed using: Name, : Yes Telehealth method: video (pt presented on video but was driving, for safety, was changed to voice call ) Patient verbally consented to treatment: Yes Patient verbally consented to billing insurance company: Yes Patient informed of any privacy concerns related to visit: Yes Minutes spent on Phone/Video with Pt.: 15 Coding Level of Care Code Tele Est Pt Level 3 (07110) Complex EM visit Add On G2211 Diagnoses Grieving F43.21 Family history of suicide Z81.8 Assessment & Plan Assessment & Plan (1) Grieving: Code(s): F43.21 - Adjustment disorder with depressed mood Category: Medical (2) Family history of suicide: Comment: sister Code(s): Z81.8 - Family history of other mental and behavioral disorders Category: Medical Plan . Medications: New escitalopram oxalate (Lexapro) 1/2 tab once daily for 2 weeks then increase to 1 tab daily 10 mg PO DAILY 30 tabs 1RF Patient Instructions: Crisis Hotlines Suicide prevention, domestic violence, and other crisis hotlines for youth, young adults, and their friends and families. [employer] Safeline: The [employer] Safeline helps youth who have run away, are thinking about running away, or who already ran away but are ready to come home. Parents and guardians can also contact the hotline if they are worried about their child running away or if their child has already left home. The hotline is available 24 hours a day, seven days a week. Youth, parents, and guardians can also use the online chat feature on the [employer]'s website to ask for help and get support, or [place] [address]. [place] National Suicide Prevention Lifeline: The National Suicide Prevention Lifeline is a network of local crisis centers that are available 21/04 to provide support for youth and adults who are in any kind of emotional crisis. In addition to the main hotline number listed above, there are several other numbers to call depending on your needs: [place]ander Language: Deaf and Hard of Hearin1-418.208.2803 Veterans: Disaster Distress: Anyone can also use their online chat feature on their website. National Suicide Prevention Lifeline [facility] Helpline: The [facility] Helpline is available to anyone in [place] who is need of emotional support. Anyone can call or text the helpline to receive help from specially trained volunteers. [place] high school and college students can also get online support through the IMHear_ program. For high school students, volunteers ages 15-18 are available Friday- from 6-9PM. For college students, IMHear_ is available Friday-Friday from 5-9PM. The Antolin Project - The Antolin Project is a 21/04 crisis intervention and suicide prevention hotline for LGBTQ youth. Youth can also text Antolin to for support, or use the online chat feature on the Antolin Project's website. TrevorText is available Friday-Friday between 3-10PM. TrevorChat is available seven days a week between 3-10PM. SafeLink: SafeLink is for anyone who is being affected by domestic violence or dating violence. Volunteers at [employer] speak [place] and [place]ander, and [employer] also has a service that can provide translation in more than 130 languages. TTY:
--- OUTSIDE RECORDS SUMMARY | 2024-11-24 19:35 | XMS_ITS | Clinical Summary ---
Author Organization [facility] Address [address] [place] [address] Care Team Providers Care Firer Glost Kiln Name Role Phone Unavailable Primary Care Provider [...] drink = 0.6 oz pur e alcohol) Comments Unknown Sex and Gender Information Value Date Recorded Sex Assigned at Not on file Legal Sex Female 11:56 PM EST Gender Identity Not on file Sexual Orientation Not on file Obstetrics History Plan of Treatment Health Maintenance Due Date Last Done Comments Hepatitis B Vaccines (1 of 3 - 19+ 3-dose series) 2011 Cervical Cancer Screening: P ap Smear 2013 Depression Screening 10/27/2019 HIV Screening 10/27/2019 Hepatitis [...] patient's age to complete this topic Meningococcal B Vacine Aged Out No lo nger eligible based on patient's age to complete [...]
== END 2024-11-24 17:05 | disposition home or self-care (01) ==
LOC: HO.HMCFM 16:10
PROVIDERS: PCP Nurse Practitioner Family; Visit Provider Nurse Practitioner Family
DX: F43.21 Adjustment disorder with depressed mood (principal); Z81.8 Family history of other mental and behavioral disorders

== ENCOUNTER 2025-02-07 11:10 | Outpatient (AMB) | payer OTHER, SELFPAY ==
[2025-02-07 11:09] VITALS: BP 137/89; PULSE 118; O2SAT 98; BMI 30.3
--- NOTE | 2025-02-07 11:09 | A.OFFVIS_ITS ---
Vital Signs 02/07/25 11:09 Height 5 ft Weight 155 lb BMI 30.3 BP 137/89 Blood Pressure Location Lt brachial Position Sitting Pulse 118 H Pulse Source Pulse Oximeter Pulse Oximetry (%) 98 Oxygen Delivery Method Room Air Intake Visit Reasons: Noninfective gastroenteritis and colitis Intake Note: Pt presents to the office today for a new patient visit for noninfective gastroe nteritis and colitis. Allergies No Known Allergies Allergy (Verified 02/07/25 11:10) HPI Comments Details: 34 y.o F with PMH of who is here for constipation. Reports years of severe constipation that she describes as 1-2 BMs with straining. Grand chart 2. Can go upto a week without defecation. Back in high school was using miralax up to 2 times a day but eventually stopped working. Started colon sweep with which she is going every other day without straining and normal appearing stool. No abd cramping. No blood in stool. Supplement contains almost 5g psyllium + probiotics. [facility] Medical History Shingles Pneumonia Pulmonary nodules Surgical History No pertinent past surgical history Family History Mother Mental health disorder Sister Mental health disorder Thyroid disorder Paternal Aunt No problems noted. Paternal Grandmother Hypertension Cardiovascular disease Brother Asthma Father Cardiovascular disease Paternal Grandfather Cardiovascular disease Social History Household Members: None Both parents involved: No Caregiver staying overnight: No Housing: House Are you a primary physician assistant primary care to a significant other at home: No Do you presently have visiting nurse or other home services: No 75 years or older and lives alone: No Alcohol intake: current Alcohol intake frequency: a few times a month Patient Tobacco Use Status: Never used Tobacco e-Cigarette/Vaping Use: Never Used Second Hand Smoke Exposure: No Current occupational status: employed 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 Cognitive needs: No Hearing needs: No Vision needs: No Review of Systems Const All systems reviewed & are unremarkable except as noted in HPI and below Physical Exam Vital Signs: Last Vital Signs Pulse 118 H 02/07/25 11:09 BP 137/89 02/07/25 11:09 Pulse Ox 98 02/07/25 11:09 Oxygen Delivery Method Room Air 02/07/25 11:09 BMI result Body Mass Index 30.3 No apparent distress Nonicteric Abdomen soft, nondistended Alert and oriented x3, normal gait Assessment & Plan Assessment & Plan (1) Chronic constipation: Code(s): K59.09 - Other constipation Category: Medical Plan Now resolved since adding fiber supplement to the diet. Reviewed that was likely 2/2 lack of adequate hydration and fiber. Can cont same supplement since its helping or if shed like can switch to plain psyllium 1 tbsp mixed in water daily. if no BM >2 days, add miralax. if no BM >4 days, can use half a bottle of mag citrate No red flags at this time to warrant an urgent colo. Follow up as needed Coding Level of Care Code New Pt Level 3 (66088) Diagnoses Chronic constipation K59.09
--- OUTSIDE RECORDS SUMMARY | 2025-02-07 12:04 | XMS_ITS | Clinical Summary ---
Author Organization [facility] Address [address] [place] [address] Care Team Providers Care Terminal Gauger Supervisor Name Role Phone Unavailable Primary Care Provider [...] Influencers of Health Screening 10/27/2019 COVID-19 Vaccine ( - 2023-2 5 season) 2024 Influenza Vaccine (Season Ended) 2025 DTaP,Tdap,and Td Vaccines (2 - Td or [...] age to complete this topic Meningococcal B Vaccine Aged Out No l onger eligible based on patient's age to complete [...]
== END 2025-02-07 11:33 | disposition home or self-care (01) ==
LOC: HO.HGI 11:11
PROVIDERS: PCP Nurse Practitioner Family; Visit Provider Internal Medicine
DX: K59.09 Other constipation (principal)
CPT/HCPCS: 99203

== ENCOUNTER 2025-03-25 11:39 | Outpatient (AMB) | payer OTHER, SELFPAY ==
--- NOTE | 2025-03-25 11:39 | A.OFFPC_ITS ---
Vital Signs 03/25/25 11:43 Height 5 ft Weight 158 lb 2 oz BMI 30.9 BP 108/68 Blood Pressure Location Lt femoral Position Standing Respiration 12 Pulse 113 H Pulse Source Pulse Oximeter Temp 97.2 F Temp Source Oral Pulse Oximetry (%) 99 Oxygen Delivery Method Room Air Intake Visit Reasons: post op appt Intake Note: Post op Landfill Gas Collection Operator Required: No Allergies No Known Allergies Allergy (Verified 03/25/25 11:46) Medication List - Last Reconciled 03/25/25 by ARIELA Hanley- escitalopram oxalate (Lexapro) 10 mg PO DAILY Tobacco use date assessed: 10/20/24 Dental Screening Dental Screen Date: 10/20/24 HPI HPI Comments History of Present Illness Details 34 y/o F with hx of PNA, family hx of co sole polyps (Dad), chronic constipation, multiple pulmonary nodules, HPV + Surgery: BBL and liposuction 03/17/2025 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 - Skin evaluation referral placed to [facility] for a newly noted skin lesion History of Present Illness - The patient is a 34-year-old female pr esenting after Filipino butt lift and liposuction on March 17. - Regret after procedure due to arduous recovery. - Postoperative stay was six days in [place]; experienced difficult postoperative course. - Symptoms of lightheadedness, dizziness , and worsened anemia. - Prior history of anemia; has been usin g iron supplements, folic acid, and vitamin C. -Completed post-op ABT -Pain - APAP - Denies fevers, chills; no postoperativ e drains. - Endures strict physical restrictions, lifting, sitting limitations. - Concern about work resumption due to p hysical limitations. - Stable mood, has not commenced on Major pro. - Reports shortness of breath, chest dis comfort post-exertion. - Mentions bruises and swelling without significant wound complication. - Received support from traveling friend caregiver. Review of Systems - General: Reports lightheadedness, dizz iness, feeling 'off'. - Cardiovascular: Reports shortness of b reath, denies chest pain but describes chest pressure during episodes of dizziness. - Gastrointestinal: Denies nausea, vomit ing. - Neurological: Reports feeling lighthea ded and dizziness. - Hematological: Reports belief of exace rbated anemia postoperatively. - Dermatological: Reports bruises and sw elling. - Psychiatric: Denies mood changes, anxi ety or depression; stable mood. Physical Exam General: Well developed, well nourished, appears pale. In no acute distress. Appears stated age. Wearing a compression garment on torso - surgical incisions not evaled. She reports 2 abd incisions healing well; has lipo areas on arms and buttock as well that are draing serous fluid Head: Normocephalic, atraumatic. Eyes: Pupils are equal, round and reactive to light and accommodation. Lungs: Clear to auscultation bilaterally. No rales, rhonchi or wheeze noted. Good air flow in all [place]. Heart: Regular rhythm. Tachycardic. No murmurs, click, rubs or gallops are noted. Pulses: Peripheral pulses are equal and palpable bilaterally. Extremities: Trace edema BLE, R>L Neuro: intact Psych: Mood and affect appropriate. Mood is okay. Results Labs ordered and pending Discussion Notes During the visit, I discussed with the patient her recovery from the Filipino butt lift and liposuction performed on March 17 and the associated symptoms, such as dizziness and anemia. The patient?s previous history of anemia was considered, and the patient was advised to continue iron, folic acid, and vitamin C supplementation. I emphasized the importance of monitoring her blood counts to assess for possible severe anemia and recommended blood work to be done the same day. We discussed the necessity of contacting HR to discuss medical leave options to cover her recovery period. I explained the risks of returning to work with her current physical restrictions, which could pose a risk of further health complications, and discussed a potential Family and Medical Leave Act (FMLA) application process. We considered managing her work return in alignment with her physical capabilities once restrictions are lifted. Assessment and Plan 1. Anemia - Continue iron supplements, folic acid, and vitamin C. - Pending complete blood counts evaluati on. 2. Postoperative Recovery from Filipino Butt Lift and Liposuction - Adhere to lifting and sitting restrict ions. - Coordinate with HR for potential FMLA and delay in work return. Plan cont. leave 03/17-05/12/2025 Patient Instructions - Continue taking iron supplements, foli c acid, and vitamin C. - Follow lifting restrictions: no liftin g above 8 pounds for 8 weeks. - Avoid sitting for 12 weeks as per [place]. - Monitor symptoms: Report worsening diz ziness or lightheadedness. - Contact HR to discuss medical leave fo r recovery. - Await lab results and follow further i nstructions via portal. Consent Patient was informed and verbally consented to the use of an ambient scribe for clinic note documentation during this visit. Total time spent caring for the patient today was 45 minutes. This includes time spent before the visit reviewing the chart, time spent during the visit, and time spent after the visit on documentation, reviewing laboratory results, diagnostic imaging, medications, performing a medically necessary evaluation, counseling on diagnoses, care coordination, ordering appropriate tests, ordering appropriate medications, review of tests performed by other providers, reporting test results with the patient, communication with other healthcare providers. [facility] Medical History Shingles Pneumonia Pulmonary nodules Surgical History No pertinent past surgical history Family History Mother Mental health disorder Sister Mental health disorder Thyroid disorder Paternal Aunt No problems noted. 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 Vinh Painter, Erin Scanlon, Ty Rosenthal and colleagues, with an educational sofya from [employer]. Physical exam (Primary Care) Vital Signs: Last Vital Signs Temp 97.2 F 03/25/25 11:43 Pulse 113 H 03/25/25 11:43 Resp 12 03/25/25 11:43 BP 108/68 03/25/25 11:43 Pulse Ox 99 03/25/25 11:43 Oxygen Delivery Method Room Air 03/25/25 11:43 BMI result Body Mass Index 30.9 Tobacco/Smoking Status: Tobacco use Status Tobacco use date assessed 10/20/24 03/25/25 11:40 Patient Tobacco Use Status Never used Tobacco 03/25/25 11:40 e-Cigarette/Vaping Use Never Used 03/25/25 11:40 Thrive Assessment: Date of Thrive Assessment Date Thrive assessed 10/20/24 03/25/25 11:40 Coding Level of Care Code Est Pt Level 5 (28130) Complex EM visit Add On G2211 Diagnoses H/O liposuction of abdomen Z98.890 Tachycardia R00.0 Pre-syncope R55 Grieving F43.21 Assessment & Plan Assessment & Plan (1) H/O liposuction of abdomen: Onset Date: ~02/2025 Code(s): Z98.890 - Other specified postprocedural states Category: Medical (2) Tachycardia: Code(s): R00.0 - Tachycardia, unspecified Category: Medical (3) Pre-syncope: Code(s): R55 - Syncope and collapse Category: Medical (4) Grieving: Code(s): F43.21 - Adjustment disorder with depressed mood Category: Medical Plan . Orders: Orders Complete Blood Count no Diff Today Z98.890 - Other specified postprocedural states Comprehensive Met. Panel Today Z98.890 - Other specified postprocedural states Ferritin Today Z98.890 - Other specified postprocedural states IRON PROFILE Today Z98.890 - Other specified postprocedural states
[2025-03-25 11:43] VITALS: BP 108/68; PULSE 113; RESP 12; TEMP 36.2; O2SAT 99; BMI 30.9
--- OUTSIDE RECORDS SUMMARY | 2025-03-25 12:50 | XMS_ITS | Clinical Summary ---
Author Organization [facility] Address [address] [place] [address] Care Team Providers Care Paper Cleaner Name Role Phone Unavailable Primary Care Provider [...]
== END 2025-03-25 16:50 | disposition home or self-care (01) ==
LOC: HO.HMCFM 11:39
PROVIDERS: PCP Nurse Practitioner Family; Visit Provider Nurse Practitioner Family
DX: R00.0 Tachycardia, unspecified (principal); R55 Syncope and collapse; F43.21 Adjustment disorder with depressed mood; Z98.890 Other specified postprocedural states

== ENCOUNTER → 2025-03-25 11:39 | Outpatient (BNVA) | payer OTHER, SELFPAY | PROVIDERS: PCP Nurse Practitioner Family; Visit Provider Nurse Practitioner Family | DX: Z13.89 Encounter for screening for other disorder (principal) ==

== ENCOUNTER 2025-03-25 12:09 | Outpatient (REF) | payer OTHER, SELFPAY ==
[2025-03-25 14:19] LABS: Mean Corpuscular HGB Conc 31.1 g/dl (31.0-35.0); Mean Corpuscular Hemoglobin 27.6 pg (27.0-33.0); Mean Corpuscular Volume 88.9 fL (80.0-98.0); Platelet Count 443 X10*3/uL (160-400); Red Blood Count 1.99 X10*6/uL (4.20-5.50); Red Cell Distribution Width 21.6 % (11.0-16.0); White Blood Count 8.5 X10*3/uL (4.8-10.8)
[2025-03-25 14:23] LABS: Hematocrit 17.7 % (37.0-47.0); Hemoglobin 5.5 g/dl (12.0-16.0)
[2025-03-25 14:46] LABS: Alanine Aminotransferase 49 U/L (0-31); Albumin Level 3.8 g/dL (3.5-5.0); Alkaline Phosphatase 52 U/L (39-117); Anion Gap 10 (12-20); Aspartate Amino Transferase 41 U/L (5-31); Bilirubin Total 0.5 mg/dL (0.0-1.0); Blood Urea Nitrogen 8 mg/dL (9-16); Calcium 8.7 mg/dL (8.4-10.2); Carbon Dioxide 25 mmol/L (22-29); Chloride 104 mmol/L (96-108); Estimated Glomerular Filt Rate > 60; Glucose Random 118 mg/dL (60-115); Iron 150 mcg/dL (30-160); Percent Iron Saturation 60 % (15-50); Potassium 3.9 mmol/L (3.3-5.1); Sodium 135 mmol/L (135-145); Total Iron Binding Capacity 252 mcg/dL (228-428); Total Protein 6.4 g/dL (6.5-8.0); Unsaturated Iron Binding 102 ug/dL
[2025-03-25 15:02] LABS: Ferritin 95 ng/mL (10-122)
== END 2025-03-25 12:10 | disposition home or self-care (01) ==
LOC: HO.WFDLDS 12:09
PROVIDERS: Visit Provider Nurse Practitioner Family
DX: R55 Syncope and collapse (principal); D64.9 Anemia, unspecified; Z98.890 Other specified postprocedural states
CPT/HCPCS: 36415; 80053; 82728; 83540; 85027

== ENCOUNTER 2025-03-25 16:10 | Emergency (ER) | payer OTHER, SELFPAY ==
[2025-03-25] VITALS (9 sets, daily range): BP systolic 112–144; BP diastolic 60–89; PULSE 97–116; RESP 14–19; TEMP 36.3–37.5; O2SAT 98–100; BMI 30.9
--- NOTE | 2025-03-25 16:12 | ECG_ITS ---
Test Reason : TACHYCARDIA Blood Pressure : */* mmHG Vent. Rate : 105 BPM Atrial Rate : 105 BPM P-R Int : 118 ms QRS Dur : 72 ms QT Int : 318 ms P-R-T Axes : 8 46 18 degrees QTcB Int : 420 ms Sinus tachycardia Otherwise normal ECG No previous ECGs available Referred By: Generic ED Physician Electronically Signed By: PERICO VELAZQUEZ
[2025-03-25 16:50] LABS: MANUAL DIFF FLAG NO
[2025-03-25 16:54] LABS: Basophils Percent Auto 0.3 % (0-2); Eosinophils Absolute Auto 0.2 X10*3/uL (0.0-0.4); Eosinophils Percent Auto 3.2 % (0-4); Imm Gran Abs Auto 0.16 X10*3/uL (0.00-0.03); Imm Gran Pct Auto 2.1 % (0.0-0.4); Lymphocytes Absolute Auto 2.3 X10*3/uL (1.2-4.9); Lymphocytes Percent Auto 31.1 % (20-40); Mean Corpuscular HGB Conc 31.8 g/dl (31.0-35.0); Mean Corpuscular Volume 88.1 fL (80.0-98.0); Mean Platelet Volume 9.3 fL (9.4-12.3); Monocytes Absolute Auto 0.8 X10*3/uL (0.1-1.2); Monocytes Percent Auto 10.2 % (2-11); NRBC Pct Auto 0.4 /100WBC (0.0-0.2); Neutrophils Percent Auto 53.1 % (45-73); Platelet Count 386 X10*3/uL (160-400); Red Blood Count 1.93 X10*6/uL (4.20-5.50); Red Cell Distribution Width 21.4 % (11.0-16.0); White Blood Count 7.5 X10*3/uL (4.8-10.8)
[2025-03-25 17:01] LABS: Hemoglobin 5.4 g/dl (12.0-16.0)
[2025-03-25 17:04] LABS: Anion Gap 12 (12-20); Blood Urea Nitrogen 9 mg/dL (9-16); Calcium 8.5 mg/dL (8.4-10.2); Carbon Dioxide 25 mmol/L (22-29); Chloride 105 mmol/L (96-108); Creatinine Clr Calc Pharmacy 118.9; Estimated Glomerular Filt Rate > 60; Glucose Random 94 mg/dL (60-115); Potassium 3.9 mmol/L (3.3-5.1); Sodium 138 mmol/L (135-145)
--- NOTE | 2025-03-25 17:11 | ED.GENADULT ---
HPI - General Adult General Chief complaint: Recheck/Abnormal Lab/Rx Stated complaint: Tachycardia SOB Time Seen by Provider: 03/25/25 16:44 History of Present Illness HPI narrative: patient is a 34-year-old female presents today had a surgical procedure done on March 17 patient had liposuction done in [place]. Presented today with having generalized malaise. Patient had some tachycardia earlier. There is no pain. Feels weak. Patient's primary physician check the hemoglobin it was 5.5. Sent in for further evaluation patient denies any blood in the stool. Denies any fever chills. The surgery was done on March 17. Has no history of bleeding disorder not on any blood thinners. Patient is from home. Related Data Previous Rx's ?Medication ?Instructions ?Recorded escitalopram oxalate 10 mg tablet 10 mg PO DAILY #30 tabs 11/24/24 (Lexapro) Allergies Allergy/AdvReac Type Severity Reaction Status Date / Time No Known Allergies Allergy Verified 03/25/25 16:31 Review of Systems Review of Systems: No fever no chills no chest pain or shortness of breath PMFSH Past Medical History Attestation statement: The following information was validated with the patient. Medical History Shingles Pneumonia Pulmonary nodules Surgical History No pertinent past surgical history Family History Family History Mother Mental health disorder Sister Mental health disorder Thyroid disorder Paternal Aunt No problems noted. Paternal Grandmother Hypertension Cardiovascular disease Brother Asthma Father Cardiovascular disease Paternal Grandfather Cardiovascular disease Social History Social History Household Members: None Housing: House Are you a primary infant childcare provider to a significant other at home: No Do you presently have visiting nurse or other home services: No Alcohol intake: current Alcohol intake frequency: holidays/special occasions only Patient Tobacco Use Status: Never used Tobacco Smoked in Last 30 Days: No e-Cigarette/Vaping Use: Never Used Second Hand Smoke Exposure: No Use of substances other than those prescribed or required for medical reasons: No Advance Directives: No Advance Directives Information Provided: Yes Do you have a plan to hurt others: No Plan Patient : No (recent preg test for surgery) Current occupational status: employed 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 Cognitive needs: No Hearing needs: No Vision needs: No Physical Exam ED Vital Signs: Vital Signs - 24 hr 03/25/25 16:30 03/25/25 18:32 03/25/25 18:50 Temperature 97.9 F 98.1 F 98.4 F Pulse Rate 106 H 108 H 116 H Respiratory Rate 18 18 18 Blood Pressure 131/76 121/62 144/89 H Pulse Oximetry 100 Oxygen Delivery Method Room Air 03/25/25 19:18 03/25/25 19:50 03/25/25 20:47 Temperature 97.3 F 98.8 F 99.5 F Pulse Rate 102 H 107 H 109 H Respiratory Rate 16 17 14 Blood Pressure 118/70 127/70 112/63 Pulse Oximetry 99 Oxygen Delivery Method Room Air 03/25/25 21:31 03/25/25 21:47 03/25/25 22:08 Temperature 98.4 F 99.0 F 98.2 F Pulse Rate 97 100 101 H Respiratory Rate 18 18 19 Blood Pressure 121/63 120/60 120/60 Pulse Oximetry 98 Oxygen Delivery Method Room Air 03/26/25 00:57 03/26/25 00:58 Temperature 98.4 F 98.4 F Pulse Rate 103 H 103 H Respiratory Rate 22 H 22 H Blood Pressure 142/90 H 142/90 H Pulse Oximetry 98 Oxygen Delivery Method Room Air BMI result Body Mass Index 30.9 Appearance: Alert. Oriented X3. No acute distress. Eyes: Pupils equal, round and reactive to light. ENT: Pharynx normal. Neck: Normal inspection. Neck supple. No lymph nodes noted. No crepitus CVS: Normal heart rate and rhythm. Pulses normal. Normal S1 and S2 Respiratory: No respiratory distress. Breath sounds normal. No Wheezing. No rales Abdomen: Soft and nontender. No rigidity. No distention. good BS x4. Abdominal wounds appears to be intact. There is no redness noted. No dischge Skin: Skin warm and dry. Normal skin color. Normal skin turgor rectal exam patient refused Extremities: No lower extremity edema. Neurovascular intact to all extremities. No Lacerations. No Rash Neuro: Oriented X 3. No motor deficit. No sensory deficit. Moving all extermities. No slurred speech Medical Decision Making Medical Decision Making MDM Narrative: Patient given 2 units of blood. Symptomatically feels much improved. Hemoglobin went up to 9. Patient is in no distress. She refused a rectal exam her wounds looks intact stated that his stool was brown was hard normal consistency no evidence of gross bleed patient stated the incident happened after she had surgery done in [place] for her tummy tuck. She is currently in stable condition with discharge home Differential Diagnosis Differential Diagnoses: The differential diagnosis associated with the presentation includes Anemia Admission/Observation Consideration of admission/observation: Escalation of care including admission/observation considered No need to stay hemoglobin improved Lab Data [facility] Lab Attestation statement: I reviewed the patient's lab results. 03/26/25 01:03 03/25/25 16:47 Labs: Lab Results 03/25/25 03/25/25 03/26/25 Range/Units 16:47 16:58 01:03 WBC 7.5 7.6 (4.8-10.8) X10*3/uL RBC 1.93 L 2.95 L D (4.20-5.50) X10*6/uL Hgb 5.4 L* 9.3 L D (12.0-16.0) g/dl Hct 17.0 L* 26.4 L D (37.0-47.0) % MCV 88.1 89.5 (80.0-98.0) fL MCH 28.0 31.5 (27.0-33.0) pg MCHC 31.8 35.2 H (31.0-35.0) g/dl RDW 21.4 H 19.8 H (11.0-16.0) % Plt Count 386 (160-400) X10*3/uL MPV 9.3 L 10.5 (9.4-12.3) fL Immature Gran % (Auto) 2.1 H 2.4 H (0.0-0.4) % Neut % (Auto) 53.1 55.9 (45-73) % Lymph % (Auto) 31.1 27.4 (20-40) % [place] % (Auto) 10.2 9.8 (2-11) % Eos % (Auto) 3.2 4.2 H (0-4) % Baso % (Auto) 0.3 0.3 (0-2) % Lymph # (Auto) 2.3 2.1 (1.2-4.9) X10*3/uL [place] # (Auto) 0.8 0.7 (0.1-1.2) X10*3/uL Eos # (Auto) 0.2 0.3 (0.0-0.4) X10*3/uL Baso # (Auto) 0.0 0.0 (0.0-0.2) X10*3/uL Abs Immat Gran (auto) 0.16 H 0.18 H (0.00-0.03) X10*3/uL Absolute Neuts (auto) 4.0 4.2 (2.0-8.3) x10*3/uL Absolute Nucleated RBC 0.030 H 0.070 H (0.0-0.012) X10*3/uL Nucleated RBC % (auto) 0.4 H 0.9 H (0.0-0.2) /100WBC Sodium 138 (135-145) mmol/L Potassium 3.9 (3.3-5.1) mmol/L Chloride 105 (96-108) mmol/L Carbon Dioxide 25 (22-29) mmol/L Anion Gap 12 (12-20) BUN 9 (9-16) mg/dL Creatinine 0.60 (0.5-1.4) mg/dL Estim Creat Clear Calc 118.9 Estimated GFR > 60 Random Glucose 94 (60-115) mg/dL Calcium 8.5 (8.4-10.2) mg/dL Blood Type AB Positive Antibody Screen NEGATIVE Crossmatch See Detail Critical Care Time Critical Care Time Critical Care Time: Yes Total Critical Care Time: 40 Attestation: I have personally provided 40 minutes of critical care time exclusive of time spent on separately billable procedures. ?Time includes review of lab data, radiology results, discussion with consultants, and monitoring for potential decompensation. ?Interventions were performed as documented above Discharge Plan Discharge Clinical Impression: Anemia Patient Disposition: Home, Self-Care Prescriptions: No Action escitalopram oxalate [Lexapro] 10 mg tablet 10 mg PO DAILY Qty: 30 1RF Rx Instructions: 1/2 tab once daily for 2 weeks then increase to 1 tab daily Referrals: Shauna Manzano, [facility] [Primary Care Provider, Internal Medicine] - 03/28/25 Print Language: Macedonian
[2025-03-26 00:57] VITALS: BP 142/90; PULSE 103; RESP 22; TEMP 36.9
[2025-03-26 00:58] VITALS: BP 142/90; PULSE 103; RESP 22; TEMP 36.9; O2SAT 98
[2025-03-26 01:15] LABS: Basophils Percent Auto 0.3 % (0-2); Eosinophils Absolute Auto 0.3 X10*3/uL (0.0-0.4); Eosinophils Percent Auto 4.2 % (0-4); Hematocrit 26.4 % (37.0-47.0); Hemoglobin 9.3 g/dl (12.0-16.0); Imm Gran Abs Auto 0.18 X10*3/uL (0.00-0.03); Imm Gran Pct Auto 2.4 % (0.0-0.4); Lymphocytes Absolute Auto 2.1 X10*3/uL (1.2-4.9); Lymphocytes Percent Auto 27.4 % (20-40); Mean Corpuscular HGB Conc 35.2 g/dl (31.0-35.0); Mean Corpuscular Hemoglobin 31.5 pg (27.0-33.0); Mean Corpuscular Volume 89.5 fL (80.0-98.0); Mean Platelet Volume 10.5 fL (9.4-12.3); Monocytes Absolute Auto 0.7 X10*3/uL (0.1-1.2); Monocytes Percent Auto 9.8 % (2-11); NRBC Pct Auto 0.9 /100WBC (0.0-0.2); Neutrophils Absolute Auto 4.2 x10*3/uL (2.0-8.3); Neutrophils Percent Auto 55.9 % (45-73); PLT CLUMP 1; Red Blood Count 2.95 X10*6/uL (4.20-5.50); Red Cell Distribution Width 19.8 % (11.0-16.0); SCAN SMEAR FLAG 1
[2025-03-26 01:16] LABS: White Blood Count 7.6 X10*3/uL (4.8-10.8)
[2025-03-26 01:17] LABS: MANUAL DIFF FLAG NO
[2025-03-26 01:39] LABS: Platelet Count 491 X10*3/uL (160-400)
[2025-03-26 02:13] VITALS: BP 142/90; PULSE 103; RESP 22; TEMP 36.9; O2SAT 98
== END 2025-03-26 01:40 | disposition home or self-care (01) ==
PROVIDERS: Emergency Provider Emergency Medicine Emergency Medical Services; PCP Nurse Practitioner Family
DX: D64.9 Anemia, unspecified (principal); R00.0 Tachycardia, unspecified; R53.81 Other malaise; R53.1 Weakness; K59.09 Other constipation; Z98.890 Other specified postprocedural states; Z79.899 Other long term (current) drug therapy
CPT/HCPCS: 36415; 36430; 80048; 85025; 86850; 86900; 86901; 86923; 93005; 99285; 99291; P9016

== ENCOUNTER → 2025-03-25 16:12 | Outpatient (BNV) | payer OTHER, SELFPAY | PROVIDERS: Emergency Provider Emergency Medicine Emergency Medical Services; PCP Nurse Practitioner Family; Visit Provider Internal Medicine | DX: R00.0 Tachycardia, unspecified (principal) | CPT/HCPCS: 93010 ==

== ENCOUNTER 2025-04-20 10:07 | Outpatient (AMB) | payer OTHER, SELFPAY ==
--- NOTE | 2025-04-20 10:08 | MHC.OFFVIS ---
Vital Signs 04/20/25 10:09 Height 5 ft Weight 154 lb 5.177 oz BMI 30.1 BP 120/76 Blood Pressure Location Lt brachial Position Standing Pulse 93 Pulse Source Pulse Oximeter Pulse Oximetry (%) 97 Oxygen Delivery Method Room Air Intake Visit Reasons: Pneumonia Mattress Filler Required: No Accompanied by: Self / Same As Patient Allergies No Known Allergies Allergy (Verified 04/20/25 10:14) HPI Comments Details: The patient is a 34 year woman with a known history of pneumonia. Apparently she was in usual state health until when she was not back in 2019 approximately where she developed only. She was treated in subsequently after that she has had several more episodes. She was followed at [facility] and she did have a CT scan of the chest back in 2020. He reports demonstrating multiple pulmonary nodules. No evidence of any parenchymal disease or airspace disease. She ended up having a repeat CT scan 2 years later demonstrating no evidence of any worsening of the nodules. Therefore no additional follow-up with warranted. More recently 08/18/2024 she started developing fevers and malaise. She developed a cough. Ultimately had an x-ray demonstrating right-sided hilar airspace disease suggestive of pneumonia. The patient was treated with antibiotics. And after a week she felt better. She had a repeat x-ray sometime in August demonstrating interval resolution of the airspace disease. Right now well. She is back to her baseline. 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 She denies any joint pains or rashes. At this point will go ahead and request blood work to assess her immune system in view of her frequent pneumonias. She is going to follow up in 6 months. She develops any worsening symptoms prior to that she will call for an earlier assessment. 04/20/2025 the patient is here for a pulmonary follow-up visit. Overall she is doing well from a respiratory status. She did undergo surgery [place] which was plastic surgery in ultimately had issues with significant shortness of breath and dizziness afterwards. She had to come back to [place] where she did have to go to the ER because of the worsening symptoms. Hemoglobin was found to be less than 6. She required a blood transfusion and subsequently she was monitored by primary care. Hemoglobin seems to be improving although still low. Her surgical sites appear to be intact. They appeared to be close she is 6 weeks out from surgery. Breathing has been well. No recurrent infections or respiratory issues. She has not required her rescue inhaler. We did look at her blood work her immunoglobulins are stable therefore there is no evidence of any deficiencies specially in view of her having pneumonia. Otherwise, the patient is doing well she will follow-up in an as needed basis will pulmonary. [facility] Medical History Shingles Pneumonia Pulmonary nodules Surgical History No pertinent past surgical history Family History Mother Mental health disorder Sister Mental health disorder Thyroid disorder Paternal Aunt No problems noted. Paternal Grandmother Hypertension Cardiovascular disease Brother Asthma Father Cardiovascular disease Paternal Grandfather Cardiovascular disease Social History Household Members: None Both parents involved: No Caregiver staying overnight: No Housing: House Are you a primary pediatric care coordinator to a significant other at home: No Do you presently have visiting nurse or other home services: No 75 years or older and lives alone: No Alcohol intake: current Alcohol intake frequency: holidays/special occasions only Patient Tobacco Use Status: Never used Tobacco e-Cigarette/Vaping Use: Never Used Second Hand Smoke Exposure: No Current occupational status: employed 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 Cognitive needs: No Hearing needs: No Vision needs: No Review of Systems Const Denies fever(s) and Denies malaise Eyes Reports no additional complaints ENT Reports no additional complaints and Reports dizziness Card Denies chest pain and Reports dyspnea on exertion Resp Reports as per HPI, Reports dyspnea on exertion and Denies wheezing GI Reports as per HPI and Reports abdominal pain Musc Reports no additional complaints Skin/Breast Denies rash Neuro Reports dizziness Endo Reports no additional complaints Kevin/Lymph Denies easy bleeding and Denies lymphadenopathy Aller/Immun Denies wheezing Physical Exam Vital Signs: Last Vital Signs Pulse 93 04/20/25 10:09 BP 120/76 04/20/25 10:09 Pulse Ox 97 04/20/25 10:09 Oxygen Delivery Method Room Air 04/20/25 10:09 BMI result Body Mass Index 30.1 Assessment & Plan Assessment & Plan (1) Pneumonia: Code(s): J18.9 - Pneumonia, unspecified organism Category: Medical Qualifiers: Laterality: right Lung location: middle lobe of lung Pneumonia type: due to unspecified organism Qualified Code(s): J18.9 - Pneumonia, unspecified organism (2) Pulmonary nodules: Comment: stable nodules based on CT chest 2020 and 2022 Code(s): R91.8 - Other nonspecific abnormal finding of lung field Category: Medical Plan DILLAN as needed Will call if any respiratory complaints F/U as needed Coding Level of Care Code Est Pt Level 4 (90679) Diagnoses Pneumonia of right middle lobe due to infectious organism J18.9 Laterality: right Lung location: middle lobe of lung Pneumonia type: due to unspecified organism Pulmonary nodules R91.8 Time Spent (min) 15
[2025-04-20 10:09] VITALS: BP 120/76; PULSE 93; O2SAT 97; BMI 30.1
--- OUTSIDE RECORDS SUMMARY | 2025-04-20 11:01 | XMS_ITS ---
Author Name [facility] Organization Unknown Care Team Organization Name Specialty Phone Email Start Date End Da pooja [facility] RANDY Primary Care 02/03/2023 05/17/2024 [facility] Heide Aguiar Primary Care 08/06/2022 024
--- OUTSIDE RECORDS SUMMARY | 2025-04-20 11:01 | XMS_ITS | Clinical Summary ---
Author Organization [facility] Address [address] [place] [address] Care Team Providers Care Cafeteria Clerk Name Role Phone Unavailable Primary Care Provider [...] Cervical Cancer Screening: P ap Smear 2013 HIV Screening 10/27/2019 Hepatitis C Screening 10/27/2019 Social Influencers of Health Screening 10/27/2019 COVID-19 Vaccine ( - 2023-2 5 season) 2024 Depression Screening 09/29/2024 Influenza Vaccine (#1) 2025 DTaP,Tdap,and Td Vaccines (2 - Td [...] 5 Years) and At-Risk Patients (6 to 49 Years) Aged Out No longer eligi ble based on patient's age to complete this topic RSV Immunization Patients Un france 20 months Aged Out No longer eligible b ased on patient's age to complete this topic Varicella Vaccines Aged Out No longer eligible based on patient's age to complete this topic
--- OUTSIDE RECORDS SUMMARY | 2025-04-20 11:01 | XMS_ITS | Encounter Summary ---
Author Organization [facility] Address [address] [place] [phone] Phone Care Team Providers Care Machinery Repair Maintenance Supervisor Name Role Phone Pcp, Unknown Primary Care Provider Unavailabl e Encounter Details Date Type Department Care Team (Late st Contact Info) Description 10/09/2021 Ancillary Orders [facility],Outside Imaging [address] [place] [address] System, Provider Not In, [facility] [address] [address] Social History Tobacco Use Types Packs/Day Years Used Date Smoking Tobacco: Never Assessed Comments Unknown Sex and Gender Information Value Date Recorded Sex Assigned at Not on file Legal Sex Female 1:45 PM EST Gender Identity Not on file Sexual Orientation Not on file documented as of this encounter Plan of Treatment Not on file documented as of this encounter Results * XR Upper Extremity Outside (No Interpretation) (10/08/2021 12:00 AM EST) Narrative SYSTEMGENERATED, DOCUMENTATION - 10/09/2021 10:17 AM EST This study is for PACS storage only and not for interpretation. us Provider Not In System PhD IMG OUTSIDE IMAGING W /OUT INTERPRETATION Final Result documented in this encounter Visit Diagnoses Not on filedocumented in this encounter Care Teams Machinery Repair Maintenance Supervisor Relationship Specialty Start Date End Date Pcp, Unknown PCP - General 10/08/21 documented as of this encounter Additional Source Comments The information contained in this document represents components of the legal health record. It is not the complete legal health record.[facility]
== END 2025-04-20 10:27 | disposition home or self-care (01) ==
LOC: HO.HPS 10:07
PROVIDERS: PCP Internal Medicine; Visit Provider Hospitalist
DX: J18.9 Pneumonia, unspecified organism (principal); R91.8 Other nonspecific abnormal finding of lung field
CPT/HCPCS: 99214

== ENCOUNTER 2025-05-11 09:04 | Outpatient (AMB) | payer OTHER, SELFPAY ==
--- NOTE | 2025-05-11 09:07 | A.OFFPC_ITS ---
Vital Signs 05/11/25 09:13 Height 5 ft Weight 153 lb BMI 29.9 BP 98/66 Blood Pressure Location Lt brachial Position Sitting Respiration 12 Pulse 68 Pulse Source Pulse Oximeter Temp 96.9 F Temp Source Oral Pulse Oximetry (%) 98 Oxygen Delivery Method Room Air Intake Visit Reasons: in person appt, return to work clearance Intake Note: Patient here to get cleared to return to work Bright Cutter Required: No Allergies No Known Allergies Allergy (Verified 05/11/25 10:00) Tobacco use date assessed: 05/11/25 Dental Screening Dental Screen Date: 05/11/25 Did you have a dental visit in the last 12 months?: Yes Did you have a dental problem in the last 6 months where you did not have access to dental care?: No Was dental information given to patient?: Patient has dentist HPI HPI Comments History of Present Illness Details 34 y/o F with hx of PNA, family hx of co sole polyps (Dad), chronic constipation, multiple pulmonary nodules, HPV + Surgery: BBL and liposuction 03/17/2025 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 - Skin evaluation referral placed to [facility] for a newly noted skin lesion History of Present Illness - The patient is a 34-year-old female pr esenting with follow-up for postoperative clearance and ongoing symptoms post-surgery. - s/p Moroccan butt lift and liposucti on on March 17 2025. Out of work since. - History of anemia post-surgery requiri ng blood transfusion; patient currently reports improvement. - Reports ankle edema with weight fluctu ation and discomfort, linked to increased activity levels. - Noted bowel movement changes character ized by flat stools, raising concerns post-surgery. - Uneven area LLQ, feels soft and squish y palpation. - Stable cardiac and pulmonary status wi th no fever or chills. - Feels ready to return to work 05/19/25 as planned. Review of Systems - Cardiovascular: Reports tachycardia. D enies chest pain. - Respiratory: Denies shortness of breat h. Cleared by pulmonology. - Gastrointestinal: Reports change in michael wel habits with flat stools. - Genitourinary: Denies dysuria. - Musculoskeletal: Reports ankle edema. Denies muscle weakness. 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 - General: Reports feeling better post b lood transfusion. Denies fever, chills. - Dermatological: Denies rashes. Physical Exam General: Well developed, well nourished, In no acute distress. Appears stated age. Head: Normocephalic, atraumatic. Eyes: Pupils are equal, round and reactive to light and accommodation. Lungs: Clear to auscultation bilaterally. No rales, rhonchi or wheeze noted. Good air flow in all [place]. Heart: Regular rhythm. No murmurs, click, rubs or gallops are noted. Pulses: Peripheral pulses are equal and palpable bilaterally. Abd: normoactive BS, nontender, LLQ is a mild visibile protrubence, it is soft, nonfluctuant. Extremities: Trace edema BLE, R>L Neuro: intact Psych: Mood and affect appropriate. Results - Labs: Hemoglobin 9.8, Hematocrit 26.4, Albumin level 3.8 as of March 25. - Labs from today look great, see below; CT scan ordered today pending Discussion Notes I discussed with the patient the ongoing postoperative symptoms, including ankle edema and changes in bowel habits. . I explained the plan to perform further diagnostic testing, including a CT scan of the abdomen and pelvis, to rule out any concerning abnormalities related to the surgery or new symptoms. We decided on a CT scan over an ultrasound due to better diagnostic yield. The use of compression stockings was advised for edema management. Return to work was scheduled.. Follow-up with lab results was promised, and a watchful eye towards concerning symptoms such as new or worsening bowel changes was advised. Patient was given time to ask questions. All questions were answered to their satisfaction. Assessment and Plan 1. Postoperative recovery - Cleared to return to work 05/19/25. - Work form completed 2. Anemia - Monitor hemoglobin and hematocrit. Lab s back to baseline 3. Edema - Advise compression stockings. - Monitor diet. 4. Change in bowel habits - CT abdomen and pelvis scheduled. - CEA negative; likely resultant from recinos rgery Patient Instructions - Use compression stockings when you are active. - Monitor your dietary intake to manage fluid retention. - Look out for changes in your bowel mov ements or any new symptoms, and inform us if they occur. - Proceed with blood work and CT scan as discussed. - RTO as scheduled, sooner PRN Consent Patient was informed and verbally consented to the use of an ambient scribe for clinic note documentation during this visit. Total time spent caring for the patient today was 40 minutes. This includes time spent before the visit reviewing the chart, time spent during the visit, and time spent after the visit on documentation, reviewing laboratory results, diagnostic imaging, medications, performing a medically necessary evaluation, counseling on diagnoses, care coordination, ordering appropriate tests, ordering appropriate medications, review of tests performed by other providers, reporting test results with the patient, communication with other healthcare providers. [facility] Medical History Shingles Pneumonia Pulmonary nodules Surgical History No pertinent past surgical history Family History Mother Mental health disorder Sister Mental health disorder Thyroid disorder Paternal Aunt No problems noted. Paternal Grandmother Hypertension Cardiovascular disease Brother Asthma Father Cardiovascular disease Paternal Grandfather Cardiovascular disease Social History Household Members: None Both parents involved: No Caregiver staying overnight: No Housing: House Are you a primary team primary care physician to a significant other at home: No Do you presently have visiting nurse or other home services: No 75 years or older and lives alone: No Alcohol intake: current Alcohol intake frequency: holidays/special occasions only Patient Tobacco Use Status: Never used Tobacco e-Cigarette/Vaping Use: Never Used Second Hand Smoke Exposure: No Current occupational status: employed 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 Cognitive needs: No Hearing needs: No Vision needs: No Questionnaire Thrive Questionnaire Date Thrive assessed: 10/20/24 I am a: Patient What is your living situation today?: I have a steady place to live Within the past 12 months, did the food you bought not last and you didn't have the money to get more?: Never true Within the past 12 months, did you worry whether your food would run out before you got money to buy more?: Never true Do you have trouble paying for medicines?: No Do you have trouble getting transportation to medical appointments?: No Do you have trouble paying your heating and electricity bill?: No Do you have trouble taking care of your child, family member or friend?: No Do you have trouble with day-to-day activities such as bathing, preparing meals, shopping, managing finances, etc.?: No Are you currently unemployed and looking for a job?: No Are you interested in more education?: No Please select the resources that you would like help with: None Currently or been in a relationship where the following occur: No concerns reported THRIVE Score: 0 KIMBERLY-7 AMB Questionnaire KIBMERLY-7 Date KIMBERLY - 7 assessed: 10/20/24 Source: Developed by Drs. Vinh Painter, Erin Scanlon, Ty Rosenthal and colleagues, with an educational sofya from [employer]. Physical exam (Primary Care) Vital Signs: Last Vital Signs Temp 96.9 F 05/11/25 09:13 Pulse 68 05/11/25 09:13 Resp 12 05/11/25 09:13 BP 98/66 05/11/25 09:13 Pulse Ox 98 05/11/25 09:13 Oxygen Delivery Method Room Air 05/11/25 09:13 BMI result Body Mass Index 29.9 Tobacco/Smoking Status: Tobacco use Status Tobacco use date assessed 05/11/25 05/11/25 09:11 Patient Tobacco Use Status Never used Tobacco 05/11/25 09:11 e-Cigarette/Vaping Use Never Used 05/11/25 09:11 Thrive Assessment: Date of Thrive Assessment Date Thrive assessed 10/20/24 05/11/25 09:11 Currently or been in a relationship where the following occur: No concerns reported Results Reviewed Results Reviewed: 05/11/2025 Laboratory Result Units Range Interpretation Provider Comments White Blood Count 7.8 X10*3/uL (4.8-10.8) Red Blood Count 4.27 X10*6/uL (4.20-5.50) Delta Hemoglobin 12.2 g/dl (12.0-16.0) Delta Hematocrit 36.2 % (37.0-47.0) Delta Low Mean Corpuscular Volume 84.8 fL (80.0-98.0) Mean Corpuscular Hemoglobin 28.6 pg (27.0-33.0) Mean Corpuscular Hemoglobin Concent 33.7 g/dl (31.0-35.0) Red Cell Distribution Width 13.1 % (11.0-16.0) Platelet Count 339 X10*3/uL (160-400) Delta Mean Platelet Volume 10.7 fL (9.4-12.3) Nucleated RBC Absolute Count (auto) 0.000 X10*3/uL (0.0-0.012) Nucleated Red Blood Cells % (auto) 0.0 /100WBC (0.0-0.2) Sodium Level 140 mmol/L (135-145) Potassium Level 3.8 mmol/L (3.3-5.1) Chloride Level 108 mmol/L (96-108) Carbon Dioxide Level 25 mmol/L (22-29) Anion Gap 11 (12-20) Low Blood Urea Nitrogen 13 mg/dL (9-16) Creatinine 0.61 mg/dL (0.5-1.4) Estimated Creatinine Clearance Calc Not Reportable Estimat Glomerular Filtration Rate > 60 Random Glucose 85 mg/dL (60-115) Calcium Level 9.0 mg/dL (8.4-10.2) Total Bilirubin 0.4 mg/dL (0.0-1.0) Aspartate Amino Transf (AST/SGOT) 20 U/L (5-31) Alanine Aminotransferase (ALT/SGPT) 13 U/L (0-31) Alkaline Phosphatase 62 U/L (39-117) Total Protein 7.3 g/dL (6.5-8.0) Albumin 4.4 g/dL (3.5-5.0) Carcinoembryonic Antigen < 1.73 ng/mL Coding Level of Care Code Est Pt Level 5 (17124) Complex EM visit Add On G2211 Diagnoses Return to work evaluation Z76.89 H/O liposuction of abdomen Z98.890 Change in stool R19.5 Family history of colonic polyps Z83.719 Postoperative anemia due to acute blood loss D62 Assessment & Plan Assessment & Plan (1) Return to work evaluation: Code(s): Z76.89 - Persons encountering health services in other specified circumstances Category: Medical (2) H/O liposuction of abdomen: Onset Date: ~02/2025 Code(s): Z98.890 - Other specified postprocedural states Category: Surgical (3) Change in stool: Code(s): R19.5 - Other fecal abnormalities Category: Medical (4) Family history of colonic polyps: Code(s): Z83.719 - Family history of colon polyps, unspecified Category: Medical (5) Postoperative anemia due to acute blood loss: Code(s): D62 - Acute posthemorrhagic anemia Category: Medical Plan . Orders: Orders Carcinoembryonic Antigen Today R19.5 - Other fecal abnormalities, Z98.890 - Oth er specified postprocedural states Complete Blood Count no Diff Today R19.5 - Other fecal abnormalities, Z98.890 - Other specified postprocedural states CT abdomen pelvis wo IV con Today R19.5 - Other fecal abnormalities, Z98.890 - Other specified postprocedural states Comprehensive Met. Panel Today Z76.89 - Persons encountering health services in other specified circumstances, Z98.890 - Other specified postprocedural states
[2025-05-11 09:13] VITALS: BP 98/66; PULSE 68; RESP 12; TEMP 36.1; O2SAT 98; BMI 29.9
--- OUTSIDE RECORDS SUMMARY | 2025-05-11 09:26 | XMS_ITS | Encounter Summary ---
Author Organization [facility] Address [address] [place] [id number] Phone Care Team Providers Care Fireworks Inspector Name Role Phone Pcp, Unknown Primary Care Provider Unavailabl e Encounter Details Date Type Department Care Team (Late st Contact Info) Description 10/09/2021 Ancillary Orders [facility]Outside Imaging [address] [place] [address] System, Provider Not In, [facility] [address] [id number] Social History Tobacco Use Types Packs/Day Years [...] on filedocumented in this encounter Care Teams Fireworks Inspector Relationship Specialty Start Date End Date Pcp, Unknown PCP - General 10/08/21 documented as of this encounter Additional Source Comments The information contained in this document represents components of the legal health record. It is not the complete legal health record.[facility]
--- OUTSIDE RECORDS SUMMARY | 2025-05-11 09:26 | XMS_ITS | Clinical Summary ---
Author Organization [facility] Address [address] [place] [address] Care Team Providers Care Linux System Administrator Name Role Phone Unavailable Primary Care Provider [...]
== END 2025-05-11 09:55 | disposition home or self-care (01) ==
LOC: HO.HMCFM 09:05
PROVIDERS: PCP Internal Medicine; Visit Provider Nurse Practitioner Family
DX: R19.5 Other fecal abnormalities (principal); D62 Acute posthemorrhagic anemia; Z76.89 Persons encountering health services in other specified circumstances; Z98.890 Other specified postprocedural states; Z83.719 Family history of colon polyps, unspecified

== ENCOUNTER 2025-05-11 09:04 | Outpatient (REF) | payer OTHER, SELFPAY ==
[2025-05-11 11:32] LABS: Hematocrit 36.2 % (37.0-47.0); Hemoglobin 12.2 g/dl (12.0-16.0); Mean Corpuscular HGB Conc 33.7 g/dl (31.0-35.0); Mean Corpuscular Hemoglobin 28.6 pg (27.0-33.0); Mean Corpuscular Volume 84.8 fL (80.0-98.0); NRBC Abs Auto 0.000 X10*3/uL (0.0-0.012); NRBC Pct Auto 0.0 /100WBC (0.0-0.2); Platelet Count 339 X10*3/uL (160-400); Red Blood Count 4.27 X10*6/uL (4.20-5.50); White Blood Count 7.8 X10*3/uL (4.8-10.8)
[2025-05-11 11:57] LABS: Alanine Aminotransferase 13 U/L (0-31); Albumin Level 4.4 g/dL (3.5-5.0); Alkaline Phosphatase 62 U/L (39-117); Anion Gap 11 (12-20); Aspartate Amino Transferase 20 U/L (5-31); Blood Urea Nitrogen 13 mg/dL (9-16); Calcium 9.0 mg/dL (8.4-10.2); Carbon Dioxide 25 mmol/L (22-29); Chloride 108 mmol/L (96-108); Estimated Glomerular Filt Rate > 60; Potassium 3.8 mmol/L (3.3-5.1); Sodium 140 mmol/L (135-145); Total Protein 7.3 g/dL (6.5-8.0)
[2025-05-11 12:07] LABS: Carcinoembryonic Antigen < 1.73 ng/mL
== END 2025-05-11 09:05 | disposition home or self-care (01) ==
LOC: HO.WFDLDS 09:04
PROVIDERS: PCP Internal Medicine; Visit Provider Nurse Practitioner Family
DX: Z76.89 Persons encountering health services in other specified circumstances (principal); R19.5 Other fecal abnormalities; D62 Acute posthemorrhagic anemia; Z98.890 Other specified postprocedural states; Z83.719 Family history of colon polyps, unspecified
CPT/HCPCS: 36415; 80053; 82378; 85027

== ENCOUNTER 2025-06-22 08:11 | Outpatient (REF) | payer OTHER, SELFPAY ==
--- NOTE | ~2025-06-22 | CT_ITS ---
CLINICAL HISTORY: Z98.890 - Other specified postprocedural states --- Additional Notes or Special Instructions: has a visible lump in LLQ, nontender, assoc w change in stools, that are Exam: CT abdomen and pelvis with IV contrast Comparison: None provided Findings: Normal lung bases. Liver, gallbladder, spleen, pancreas, adrenal glands, kidneys, ureters, bladder and reproductive organs are unremarkable. Unremarkable GI tract, normal appendix. Moderate to large amount of inspissated stool throughout the colon. Unremarkable vasculature. No lymphadenopathy, ascites or pneumoperitoneum. Postsurgical changes of the abdominopelvic wall, probably from abdominoplasty. Unremarkable osseous structures. Impression: 1. No acute finding. No CT finding to account for the visible lump of left lower quadrant indicated by the history. 2. Suggestion of constipation. This document has been electronically signed by: Renata Atwood MD on 06/22/2025 09:56:08
[2025-06-22] MEDS: iohexoL 350 MG/ML 100 ML INFUS..BTL IV (09:12)
== END 2025-06-22 08:12 | disposition home or self-care (01) ==
LOC: HO.CT 08:11
PROVIDERS: PCP Nurse Practitioner Family; Visit Provider Nurse Practitioner Family
DX: R19.5 Other fecal abnormalities (principal); Z98.890 Other specified postprocedural states; Z83.719 Family history of colon polyps, unspecified
CPT/HCPCS: 74177; Q9967

== ENCOUNTER → 2025-06-22 08:12 | Outpatient (BNV) | payer OTHER, SELFPAY | PROVIDERS: PCP Nurse Practitioner Family; Visit Provider Radiology Diagnostic Radiology | DX: K59.00 Constipation, unspecified (principal); Z98.890 Other specified postprocedural states | CPT/HCPCS: 74177 ==